=== PATIENT | female | born 2000 | race Caucasian/White ===

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

== ENCOUNTER 2018-02-21 14:12 | Emergency (ER) | payer OTHER ==
[~2018-02-21] VITALS: Ht 162.6 cm; Wt 73.0 kg
[~2018-02-21 14:12] MED LIST changes: -FERR-74 PO; +FERR325T18 PO; +NAPR-915 PO; -NAPR500T3 PO
[2018-02-21] MEDS ORDERED: ONDA4TAB10 (14:55)
[2018-02-21 15:02] LABS: BILIRUBIN,URINE NEGATIVE (NEGATIVE); CLARITY,URINE CLEAR; COLOR,URINE YELLOW; GLUCOSE, URINE (UA) NEGATIVE (NEGATIVE); KETONES,URINE NEGATIVE (NEGATIVE); LEUKOCYTE ESTERASE ,URINE NEGATIVE (NEGATIVE); NITRITE,URINE NEGATIVE (NEGATIVE); PH,URINE 6.5 (5-9); PROTEIN,URINE NEGATIVE (NEGATIVE); UROBILINOGEN,URINE NORMAL (NORMAL)
[2018-02-21 15:07] LABS: BASOPHILS % (AUTO) 0 % (0-10); EOSINOPHILS # (AUTO) 0.2 10^3/uL (0.0-0.3); EOSINOPHILS % (AUTO) 3 % (0-10); HEMATOCRIT 37 % (35-52); HEMOGLOBIN 12.2 G/DL (11.5-16.0); LYMPHOCYTES # (AUTO) 1.7 X 10^3 (1.0-4.0); LYMPHOCYTES % (AUTO) 29 % (12-44); MEAN CORPUSCULAR HEMOGLOBIN 31 PG (25-34); MEAN CORPUSCULAR HGB CONC 33 G/DL (32-36); MEAN CORPUSCULAR VOLUME 94 FL (80-99); MEAN PLATELET VOLUME 9.9 FL (7.4-10.4); MONOCYTES # (AUTO) 0.6 X 10^3 (0.0-1.0); MONOCYTES % (AUTO) 10 % (0-12); NEUTROPHILS # (AUTO) 3.4 X 10^3 (1.8-7.8); NEUTROPHILS % (AUTO) 58 % (42-75); PLATELET COUNT 269 10^3/uL (130-400); RED BLOOD COUNT 3.96 10^6/uL (4.35-5.85); RED CELL DISTRIBUTION WIDTH 12.8 % (10.0-14.5); WHITE BLOOD COUNT 5.8 10^3/uL (4.3-11.0)
[2018-02-21 15:09] LABS: BACTERIA,URINE NEGATIVE /HPF; RBC,URINE RARE /HPF
--- NOTE | 2018-02-21 16:16 | ED GU-Female ---
General Chief Complaint: -Female Stated Complaint: 7 WKS PREG;POSS MISCARRIAGE Nursing Triage Note: ARRIVED VIA AMB TO ROOM 09 STATES SHE STARTED HAVING PINK DISCHARGE SUNDAY THAT HAS TURNED TO BLOOD THIS AM. CALLED DR THOMAS WHO TOLD HER TO COME TO THE ER. SHE IS UNKNOWN OF LMP AND THINKS SHE IS APPX 7 WEEKS GESTATION AND DUE IN SEPTEMBER. Source: patient, old records Exam Limitations: no limitations History of Present Illness Date Seen by Provider: Feb 21, 2018 Time Seen by Provider: 14:18 Initial Comments This 17-year-old young woman 6 para 0 presents to the emergency room with complaints of vaginal bleeding in early . She does not recall when her LMP was but she believes herself to be ruled out 7 weeks gestational age. She reports having intermittent pink spotting for about one week when wiping. Then today she passed a few small clots that were pea-sized. She denies any notable pain. She has had a vaginal odor for a couple of days. She has had nausea for about 7 weeks but no vomiting. She has had some mild discomfort with intercourse. She reports having a history of one prior chlamydia infection. Dr. Thomas is her obstetrical provider. Allergies and Home Medications Allergies Coded Allergies: diphenhydramine (Verified Adverse Reaction, Unknown, hyperactivity, ) Home Medications Clindamycin HCl 300 Mg Capsule, 300 MG PO BID Prescribed by: ERROL GAFFNEY on 02/21/18 1619 Wth823/FA/Omega3/Dha/Fish Oil 1 Each Tab.chew, 1 TAB PO DAILY, (Reported) Patient Home Medication List Home Medication List Reviewed: Yes Review of Systems Review of Systems Constitutional: no symptoms reported EENTM: no symptoms reported Respiratory: no symptoms reported Cardiovascular: no symptoms reported Gastrointestinal: see HPI Genitourinary: see HPI : Yes Musculoskeletal: no symptoms reported Skin: no symptoms reported Psychiatric/Neurological: No Symptoms Reported Endocrine: No Symptoms Reported Past Nwwyuhe-Esshdk-Jaowfc Hx Past Med/Social Hx: Reviewed Nursing Past Med/Soc Hx Patient Social History Alcohol Use: Denies Use Recreational Drug Use: No Smoking Status: Never a Smoker Type Used: Cigarettes Former Smoker, Quit: July 24, 2016 Recent Foreign Travel: No Contact w/Someone Who Travel: No Recent Infectious Disease Expo: No Recent Hopitalizations: No Seasonal Allergies Seasonal Allergies: No Past Medical History Surgeries: Yes (hernia repair) Abdominal, Adenoidectomy, Tonsillectomy Respiratory: Yes Pneumonia Cardiac: Yes Neurological: No Hx : 6 Hx Para: 0 Hx Total # of Abortions (Sp): 5 Genitourinary: No Gastrointestinal: No Musculoskeletal: No Endocrine: No HEENT: No Cancer: No Psychosocial: Yes (bpd) ADD/ADHD, PTSD, Bipolar Integumentary: No Blood Disorders: No Family Medical History Hypertension 17 FATHER Hypoglycemia 19 MOTHER Myocardial infarction GRANDFATHER GRANDMOTHER Physical Exam Vital Signs Vital Signs - First Documented 02/21/18 02/21/18 14:46 16:26 Temp 97.9 Pulse 77 Resp 16 B/P (MAP) 117/78 Pulse Ox 100 O2 Delivery Room Air Capillary Refill : Height, Weight, BMI Height: 5'4.00" Weight: 161lbs. 6.0oz. 73.466326zp; 21.09 BMI Method:Stated General Appearance: WD/WN, no apparent distress HEENT: normal ENT inspection Neck: normal inspection Respiratory: normal breath sounds, no respiratory distress Gastrointestinal: non tender, soft Pelvic: normal external exam, normal adnexa, no cerv. motion tender, no masses , discharge (blood-tinged purulent drainage) Extremities: normal inspection, no pedal edema Neurologic/Psychiatric: field installer II-XII nml as tested, no motor/sensory deficits, alert, normal mood/affect, oriented x 3 Progress/Results/Core Measures Suspected Sepsis SIRS Temperature:97.9 Pulse: Respiratory Rate: Laboratory Tests 02/21/18 14:55: White Blood Count 5.8 Blood Pressure / Mean: Laboratory Tests 02/21/18 14:55: Platelet Count 269 Results/Orders Lab Results Laboratory Tests Test 02/21/18 14:40 02/21/18 14:55 02/21/18 15:15 Range/Units Urine Color YELLOW Urine Clarity CLEAR Urine pH 6.5 5-9 Urine Specific [place] 1.015 L 1.016-1.022 Urine Protein NEGATIVE NEGATIVE Urine Glucose (UA) NEGATIVE NEGATIVE Urine Ketones NEGATIVE NEGATIVE Urine Nitrite NEGATIVE NEGATIVE Urine Bilirubin NEGATIVE NEGATIVE Urine Urobilinogen NORMAL NORMAL MG/DL Urine Leukocyte Esterase NEGATIVE NEGATIVE Urine RBC (Auto) NEGATIVE NEGATIVE Urine RBC RARE /HPF Urine WBC NONE /HPF Urine Squamous Epithelial Cells 2-5 /HPF Urine Crystals NONE /LPF Urine Bacteria NEGATIVE /HPF Urine Casts NONE /LPF Urine Mucus NEGATIVE /LPF Urine Culture Indicated NO White Blood Count 5.8 4.3-11.0 10^3/uL Red Blood Count 3.96 L 4.35-5.85 10^6/uL Hemoglobin 12.2 11.5-16.0 G/DL Hematocrit 37 35-52 % Mean Corpuscular Volume 94 80-99 FL Mean Corpuscular Hemoglobin 31 25-34 PG Mean Corpuscular Hemoglobin Concent 33 32-36 G/DL Red Cell Distribution Width 12.8 10.0-14.5 % Platelet Count 269 130-400 10^3/uL Mean Platelet Volume 9.9 7.4-10.4 FL Neutrophils (%) (Auto) 58 42-75 % Lymphocytes (%) (Auto) 29 12-44 % Monocytes (%) (Auto) 10 0-12 % Eosinophils (%) (Auto) 3 0-10 % Basophils (%) (Auto) 0 0-10 % Neutrophils # (Auto) 3.4 1.8-7.8 X 10^3 Lymphocytes # (Auto) 1.7 1.0-4.0 X 10^3 Monocytes # (Auto) 0.6 0.0-1.0 X 10^3 Eosinophils # (Auto) 0.2 0.0-0.3 10^3/uL Basophils # (Auto) 0.0 0.0-0.1 10^3/uL Human Chorionic Gonadotropin, Quant [id number] H <5 MIU/ML Micro Results Microbiology 02/21/18 Genital Culture, Resulted Pending 02/21/18 NATHAN Preparation - Final, Resulted 02/21/18 Wet Prep - Final, Resulted My Orders Orders - ERROL JOHNSTON MD Cbc With Automated Diff (02/21/18 14:18) Hcg,Quantitative (02/21/18 14:18) Ua Culture If Indicated (02/21/18 14:18) Wet Prep (02/21/18 15:05) Neisseria Gonorrhea Swab (02/21/18 15:05) Genital Culture (02/21/18 15:05) Nathan Prep (02/21/18 15:05) Chlamydia Trachomatis Swab (02/21/18 15:05) Us Ob Transvaginal [id number] (02/21/18 14:52) Vital Signs/I&O 02/21/18 02/21/18 14:46 16:26 Temp 97.9 97.9 Pulse 77 77 Resp 16 16 B/P (MAP) 117/78 Pulse Ox 100 O2 Delivery Room Air Room Air Capillary Refill : Point of Care Testing Urine -Bedside: Positive Progress Note : Progress Note Although patient had stated to nursing staff she had not establish with an ball racker yet, Dr. Thomas stated that he did a pelvic exam on the patient yesterday. Patient did admit to this after her pelvic exam was completed in the ER. Ultrasound revealed a normal-appearing at about 6 weeks gestational age. Preliminary vaginal culture swabs revealed clue cells. Dr. Thomas stated he already had results from his pelvic exam that showed no chlamydia or gonorrhea. Patient will be treated for bacterial vaginosis. Dr. Thomas asked that I emphasize pelvic rest for at least 2 weeks. Diagnostic Imaging Diagonstic Imaging: Ultrasound Plain Films/CT/US/NM/MRI: pelvis Comments Ultrasound discussed with the watch technician and report reviewed. See report below: NAME: ANSHU SEWELL [facility] REC#: [id number] PT STATUS: REG ER : 2000 PHYSICIAN: ERROL JOHNSTON MD ADMIT DATE: 02/21/18/ER Draft Date of Exam:02/21/18 US OB TRANSVAGINAL [id number] PATIENT HISTORY: Vaginal bleeding, early . TECHNIQUE: Transvaginal ultrasound of the gravid uterus. COMPARISON: None. FINDINGS: There is an intrauterine gestation with a pole seen, measuring 4.7 mm, corresponding with 6 weeks and 2 days. A yolk sac is visible. The gestational sac has a normal appearance and contour. No significant subchorionic hemorrhage is appreciated. heart rate is 115 bpm. Estimated date of delivery by today's ultrasound is 10/15/2018. Clinical dates by last menstrual period are 8 weeks and 3 days. The left ovary measures 3.5 x 1.8 x 1.7 cm and demonstrates normal flow. The right ovary measures 3.1 x 2.2 x 3.5 cm and demonstrates a mildly complicated cyst with a simple appearing septation, measuring up to 1.6 cm in diameter. No free fluid is seen. IMPRESSION: Single live intrauterine gestation measuring at 6 weeks and 2 days. heart rate is normal for early . No significant subchorionic hemorrhage is seen. Dictated on workstation # [id number] Dict: 02/21/18 1615 Trans: 02/21/18 1621 [facility] [id number] Interpreted by: WAQAS RAMIREZ MD Departure Impression Primary Impression: Bacterial vaginosis Additional Impression: Vaginal bleeding during Disposition: HOME, SELF-CARE Condition: Improved Departure-Patient Inst. Decision time for Depature: 16:00 Referrals: HIREN THOMAS MD (PCP/Family) Primary Care Physician Patient Instructions: Bacterial Vaginosis (DC) Add. Discharge Instructions: Complete your antibiotic as prescribed. No sexual intercourse or anything vaginally for at least 2 weeks or until otherwise cleared by Dr. Thomas. Return to care or call Dr. Thomas if you have any further problems or concerns. All discharge instructions reviewed with patient and/or family. Voiced understanding. Scripts Clindamycin HCl (Clindamycin HCl) 300 Mg Capsule 300 MG PO BID, #14 CAP Prov: ERROL JOHNSTON MD 02/21/18 Copy Copies To 1: HIREN THOMAS MD, JOSHUA T MD Feb 21, 2018 16:16
[2018-02-21] MEDS ORDERED: CLIN300C11 PO (16:19)
--- NOTE | 2018-02-21 16:22 | Diagnostic Imaging Report ---
PATIENT HISTORY: Vaginal bleeding, early . TECHNIQUE: Transvaginal ultrasound of the gravid uterus. COMPARISON: None. FINDINGS: There is an intrauterine gestation with a pole seen, measuring 4.7 mm, corresponding with 6 weeks and 2 days. A yolk sac is visible. The gestational sac has a normal appearance and contour. No significant subchorionic hemorrhage is appreciated. heart rate is 115 bpm. Estimated date of delivery by today's ultrasound is 10/15/2018. Clinical dates by last menstrual period are 8 weeks and 3 days. The left ovary measures 3.5 x 1.8 x 1.7 cm and demonstrates normal flow. The right ovary measures 3.1 x 2.2 x 3.5 cm and demonstrates a mildly complicated cyst with a simple appearing septation, measuring up to 1.6 cm in diameter. No free fluid is seen. IMPRESSION: Single live intrauterine gestation measuring at 6 weeks and 2 days. heart rate is normal for early . No significant subchorionic hemorrhage is seen. Dictated by: Dictated on workstation # [id number]
== END 2018-02-21 16:26 | disposition home or self-care (01) ==
LOC: EDUNIT# 14:12 → ER 14:13
DX: O23.591 Infection of other part of genital tract in pregnancy, first trimester (principal); B96.89 Other specified bacterial agents as the cause of diseases classified elsewhere; O20.9 Hemorrhage in early pregnancy, unspecified; O99.341 Other mental disorders complicating pregnancy, first trimester; F90.9 Attention-deficit hyperactivity disorder, unspecified type; F43.10 Post-traumatic stress disorder, unspecified; F31.9 Bipolar disorder, unspecified; Z82.49 Family history of ischemic heart disease and other diseases of the circulatory system; Z87.891 Personal history of nicotine dependence; Z90.89 Acquired absence of other organs; Z98.890 Other specified postprocedural states; Z87.01 Personal history of pneumonia (recurrent); Z3A.01 Less than 8 weeks gestation of pregnancy; Z86.19 Personal history of other infectious and parasitic diseases; Z88.8 Allergy status to other drugs, medicaments and biological substances
CPT/HCPCS: 36415; 76817; 81000; 84702; 84703; 85025; 87070; 87205; 87210; 87491; 87591

== ENCOUNTER → 2018-05-27 | Outpatient (CLI) | payer OTHER ==
[~2018-05-27] MED LIST changes: +CLIN300C11 PO; +ONDA4TAB10
--- NOTE | 2018-05-27 13:07 | Diagnostic Imaging Report ---
INDICATION: survey. TECHNIQUE: Multiple real-time grayscale images were obtained over the gravid uterus. COMPARISON: 02/21/2018. FINDINGS: There is a single live fetus in a transverse presentation. heart rate was recorded at 132 beats per minute. Placenta is anterior. Amniotic fluid volume is normal. survey demonstrates kidneys, bladder and stomach to be unremarkable. brain is unremarkable. There is a four-chamber heart. There is a three-vessel cord with normal insertion. spine is somewhat limited due to position. Cervical length is 3.9 cm. Biometrical measurements are as follows: Biparietal 4.65 cm, age 20 weeks 1 days. Head circumference 16.81 cm, age 19 weeks 4 days. Abdominal circumference 13.78 cm, age 19 weeks 2 days. Femur length 3.23 cm, age 20 weeks 1 days. Sonographic estimate age: 19 weeks 6 days. Sonographic estimated date of delivery: 10/15/18. Estimated Weight: 303 gm (+/- 44 gm). LMP percentile: 32%. heart rate: 132 beats per minute. number: 1 of 1. IMPRESSION: Single live IUP approximately 19 weeks 6 days gestational age. Estimated date of confinement sonographically 10/15/2018. survey is unremarkable although spine is somewhat limited due to position and followup can be performed. Dictated by: Dictated on workstation # [id number]
== END ==
LOC: RAD 10:30
PROVIDERS: ATTEND Family Medicine
DX: Z36.89 Encounter for other specified antenatal screening (principal); Z3A.19 19 weeks gestation of pregnancy
CPT/HCPCS: 76805

== ENCOUNTER 2018-08-14 01:54 | Outpatient (CLI) | payer OTHER, MEDICAID ==
[~2018-08-14] VITALS: Ht 162.6 cm; Wt 76.7 kg
--- NOTE | 2018-08-14 02:00 | NUR ---
ANSHU SEWELL presented to unit via WC from ED, accompanied by staff and s.o., with c/o CONTRACTIONS,FLUID LEAKAGE. ANSHU SEWELL weighed, gowned, voided, and to bed. EFHM and TOCO applied, VS taken. ANSHU SEWELL oriented to bed controls, call light, TV, heat, and A/C controls.
[2018-08-14] MEDS ORDERED: FLUC150T PO (02:46)
[2018-08-14 02:53] LABS: BILIRUBIN,URINE NEGATIVE (NEGATIVE); CLARITY,URINE CLEAR; COLOR,URINE YELLOW; GLUCOSE, URINE (UA) NEGATIVE (NEGATIVE); KETONES,URINE NEGATIVE (NEGATIVE); LEUKOCYTE ESTERASE ,URINE 2+ (NEGATIVE); NITRITE,URINE NEGATIVE (NEGATIVE); PH,URINE 7 (5-9); PROTEIN,URINE NEGATIVE (NEGATIVE); UROBILINOGEN,URINE NORMAL (NORMAL)
[2018-08-14 03:00] VITALS: BP 115/78
[2018-08-14 03:01] LABS: BACTERIA,URINE TRACE /HPF
[2018-08-14 03:02] LABS: URINE OTHER FEW SPERM /HPF
== END 2018-08-14 03:25 | disposition home or self-care (01) ==
LOC: WSo 01:54 → LDRP 01:55 → WSo 03:25
PROVIDERS: ATTEND Family Medicine
DX: Z03.71 Encounter for suspected problem with amniotic cavity and membrane ruled out (principal)
CPT/HCPCS: 81000; 99213

== ENCOUNTER 2018-08-27 01:24 | Inpatient (IN) | payer OTHER, MEDICAID ==
[~2018-08-27] VITALS: Ht 162.6 cm; Wt 80.3 kg
[~2018-08-27 01:24] MED LIST changes: +FLUC150T PO
--- NOTE | 2018-08-27 01:30 | NUR ---
ANSHU SEWELL presented to unit via ambulation from ED, accompanied by s.o., with c/o CONTRACTIONS. ANSHU SEWELL weighed, gowned, voided, and to bed. EFHM and TOCO applied, VS taken. ANSHU SEWELL oriented to bed controls, call light, TV, heat, and A/C controls.
[2018-08-27 01:45] VITALS: BP 118/79
[2018-08-27 02:30] VITALS: BP 131/79
[2018-08-27] MEDS ORDERED: MAGNESIUM 4 GM/100 ML IVPB 100 ML IV ONE (02:30)
[2018-08-27] MEDS ORDERED: BETAMETHASONE ACE/NA PHOS 6 MG/ML (CELESTONE SOLUSPAN) IM ONE (02:30)
[2018-08-27] MEDS ORDERED: NS IV 1000 ML 1,000 ML ONE (02:31)
[2018-08-27] MEDS ORDERED: MAGNESIUM SULFATE DRIP 500 ML IV ONE (02:35)
[2018-08-27] MEDS ORDERED: D5 LR IV SOLUTION 1,000 ML IV SCH (02:46)
[2018-08-27 02:50] VITALS: BP 73/44
[2018-08-27] MEDS ORDERED: WATER (STERILE) FOR INJECTION 20 ML ONE (02:50)
[2018-08-27] MEDS ORDERED: AMPICILLIN FOR IV USE 2,000 MG VIAL ONE (02:50)
--- NOTE | 2018-08-27 02:50 | History & Physical-OB ---
OB - Chief Complaint & HPI Date/Time Date of Admission: August 27, 2018 Date seen by a Provider: Aug 27, 2018 Time Seen by a Provider: 14:30 Chief Complaint/History OB-Reason for Admission/Chief: Rupture of Membranes Hx : 4 Hx Para: 0 Expected Date of Delivery: Oct 15, 2018 Gestational Age in Weeks: 34 Gestational Age in Days: 0 Other reason for admission: 18-year-old 4 currently at 34 weeks 0 days gestation who presents to women's services in the surtass analyst of August for with ruptured membranes. She does admit to having leaking of fluid throughout the afternoon of August 26, 2018. Apparently she was not 100 percent sure that she had ruptured membranes. She did not have a way to get to office during the afternoon to be checked for ruptured membranes. She presented to women's services and she does admit to contractions irregularly. Admission Nurse Assessment Rev: Yes History of Labs GBS unavailable as not performed due to not being at 36 weeks gestation Allergies and Home Medications Allergies Coded Allergies: diphenhydramine (Verified Adverse Reaction, Unknown, hyperactivity, 08/14/18) Patient Home Medication List Home Medication List Reviewed: Yes OB - History Hx of Present Care: Yes Ultrasounds: Normal mid trimester US Obstetrical Complications: None Medical Complications: None Patient Past Medical History No chronic medical problems Social History/Family History Recent Infectious Disease Expo: No Alcohol Use: Denies Use Recreational Drug Use: No OB - Admission Exam Physical Exam HEENT: Moist Membranes Heart: Rhythm Normal Lungs: Clear Abdomen: Gravid Reflexes: Normal Cervical Dilatation: 1cm Membranes: Ruptured Amniotic Fluid: Clear Heart Rate: 140's Accelerations: Accelerations Present Decelerations: No Decelerations Short Term Variability: Present Club Concierge Variability: Average (6-25) Contractions on Admission: >10 Minutes Apart Intensity: Mild OB - Assessment/Plan/Diagnosis Assessment Assessment: rupture of membranes (At 34 weeks gestation) Admission Dx 1. Intrauterine at 34 weeks 0 days gestation 2. Spontaneous premature rupture of membranes Admission Status: Observation Reason for Inpatient Admission: Patient is being transferred to [facility] under the care of Dr. Xiong. Plan Plan: Other (Patient has received betamethasone 12 mg IM. She will also receive ampicillin 2 g loading dose here. Magnesium 4 g loading dose followed by 2 g hour on transfer.) HIREN THOMAS MD Aug 27, 2018 02:50
[2018-08-27 02:54] LABS: BASOPHILS % (AUTO) 0 % (0-10); EOSINOPHILS # (AUTO) 0.3 10^3/uL (0.0-0.3); EOSINOPHILS % (AUTO) 2 % (0-10); HEMATOCRIT 39 % (35-52); HEMOGLOBIN 12.8 G/DL (11.5-16.0); LYMPHOCYTES # (AUTO) 2.6 X 10^3 (1.0-4.0); LYMPHOCYTES % (AUTO) 22 % (12-44); MEAN CORPUSCULAR HEMOGLOBIN 32 PG (25-34); MEAN CORPUSCULAR HGB CONC 33 G/DL (32-36); MEAN CORPUSCULAR VOLUME 96 FL (80-99); MEAN PLATELET VOLUME 10.8 FL (7.4-10.4); MONOCYTES # (AUTO) 1.2 X 10^3 (0.0-1.0); MONOCYTES % (AUTO) 10 % (0-12); NEUTROPHILS # (AUTO) 7.7 X 10^3 (1.8-7.8); NEUTROPHILS % (AUTO) 65 % (42-75); PLATELET COUNT 312 10^3/uL (130-400); RED CELL DISTRIBUTION WIDTH 12.9 % (10.0-14.5); WHITE BLOOD COUNT 11.8 10^3/uL (4.3-11.0)
[2018-08-27 03:00] VITALS: BP 105/59
[2018-08-27] MEDS ORDERED: CALCIUM GLUC. 10% 4.65 MEQ/10 ML VIAL IV PRN (03:00)
[2018-08-27] MEDS ORDERED: AMPICILLIN FOR IV USE 2,000 MG in WATER (STERILE) FOR INJECTION 14.8 ML IV ONE (03:00)
[2018-08-27] MEDS ORDERED: MAGNESIUM 4 GM/100 ML IVPB 100 ML IV SCH (03:00)
[2018-08-27] MEDS ORDERED: NS IV 1000 ML 1,000 ML IV SCH (03:15)
[2018-08-27] MEDS ORDERED: MAGNESIUM SULFATE DRIP 500 ML IV SCH (03:16)
--- NOTE | 2018-08-27 03:20 | NUR ---
Pt. left [facility] via cart per [facility] staff to be transferred to [facility].
--- NOTE | 2018-08-29 15:51 | Physician Query-Final Dx ---
Final Diagnosis Give Final Diagnosis Please give Final Diagnosis ENEIDA GARCIA Aug 29, 2018 15:51
== END 2018-08-27 03:20 | disposition short-term general hospital (02) | DRG 833 ==
LOC: WSo 01:24 → LDRP 02:15 → UNDOADMIN 02:15 → LDRP 03:19 → UNDOADMIN 06:43
PROVIDERS: ADMIT Family Medicine; ATTEND Family Medicine
DX: O42.013 Preterm premature rupture of membranes, onset of labor within 24 hours of rupture, third trimester (principal); Z3A.34 34 weeks gestation of pregnancy
CPT/HCPCS: 36415; 83735; 85025; 86850; 86900; 86901

== ENCOUNTER 2018-09-13 04:08 | Outpatient (CLI) | payer OTHER, MEDICAID ==
[~2018-09-13] VITALS: Ht 162.6 cm; Wt 80.3 kg
--- NOTE | 2018-09-13 04:15 | NUR ---
ANSHU SEWELL presented to unit via ambulatory from ED, accompanied by s/o , with c/o CONTRACTIONS. ANSHU SEWELL weighed, gowned, voided, and to bed. EFHM and TOCO applied, VS taken. ANSHU SEWELL oriented to bed controls, call light, TV, heat, and A/C controls. pt up changing and supplying u/a assessments to follow per Royal lamas.
[2018-09-13 04:27] VITALS: BP 121/77
[2018-09-13 04:42] LABS: BILIRUBIN,URINE NEGATIVE (NEGATIVE); CLARITY,URINE CLEAR; COLOR,URINE YELLOW; GLUCOSE, URINE (UA) NEGATIVE (NEGATIVE); KETONES,URINE 1+ (NEGATIVE); LEUKOCYTE ESTERASE ,URINE 1+ (NEGATIVE); NITRITE,URINE NEGATIVE (NEGATIVE); PH,URINE 7 (5-9); PROTEIN,URINE 1+ (NEGATIVE); UROBILINOGEN,URINE NORMAL (NORMAL)
[2018-09-13 04:51] LABS: BACTERIA,URINE MODERATE /HPF
[2018-09-13 05:22] VITALS: BP 121/77
--- NOTE | 2018-09-13 05:23 | NUR ---
Report called to Dr Gurrola and order for discharge received. Pt drinking water and ate jello. Pt states she doesn't understand why UC stopped but is good with going home since UC did stop, pt reassured and ambulated to private vehicle with SO.
--- NOTE | 2018-09-18 09:34 | Physician Query-Final Dx ---
MICHAEL LENTZ 09/18/18 0934: Clinic Account Progress/Dx Physician Query: Please give diagnosis Need diagnosis and weeks of gestation. Date of Service Sep 13, 2018 at 04:08 HIREN THOMAS MD 09/24/18 1105: Clinic Account Progress/Dx DIAGNOSIS: Diagnosis 1. IUP at 35w3d gestation 2. Non-labor MICHAEL LENTZ Sep 18, 2018 09:34 HIREN THOMAS MD Sep 24, 2018 11:05
== END 2018-09-13 05:20 | disposition home or self-care (01) ==
LOC: WSo 04:08 → LDRP 04:10 → WSo 05:20
PROVIDERS: ATTEND Family Medicine
DX: O47.03 False labor before 37 completed weeks of gestation, third trimester (principal); Z3A.35 35 weeks gestation of pregnancy
CPT/HCPCS: 81000; 87088; 99213

== ENCOUNTER 2018-09-17 14:13 | Outpatient (CLI) | payer OTHER, MEDICAID ==
[2018-09-17 14:25] VITALS: BP 142/86
--- NOTE | 2018-09-17 14:25 | NUR ---
Received to room 320 for NST for decreased movement from Dr Gurrola's office. 4 accelerations in 10 minutes noted with baseline of 130 and increased to 150's. No contractions noted. 1517 Dr Gurrola notified of results - plan to discharge with follow up biophysical profile tomorrow. Pt verbalizes understanding.
[2018-09-17 15:10] VITALS: BP 120/81
--- NOTE | 2018-09-17 16:15 | NUR ---
Pt has been waiting on ride. 1615 Pt ambulatory to 1st floor.
== END 2018-09-17 16:15 ==
LOC: LDRP 14:13 → WSo 14:13
PROVIDERS: ATTEND Family Medicine
DX: O36.8190 Decreased fetal movements, unspecified trimester, not applicable or unspecified (principal)

== ENCOUNTER 2018-09-18 09:26 | Outpatient (RCR) | payer OTHER, MEDICAID ==
--- NOTE | 2018-09-11 14:54 | Diagnostic Imaging Report ---
INDICATION: IUGR. TECHNIQUE: Multiple real-time grayscale images were obtained over the gravid uterus. COMPARISON: 05/27/2018. FINDINGS: There is a single live fetus in a cephalic presentation. heart rate was recorded at 139 beats per minute. Placenta is anterior. Amniotic fluid index is 9.3 cm. Biophysical profile is performed with overall score of 8 out of 8. Biometrical measurements are as follows: Biparietal 9.01 cm, age 36 weeks 4 days. Head circumference 31.46 cm, age 35 weeks 3 days. Abdominal circumference 26.96 cm, age 31 weeks 1 days. Femur length 6.81 cm, age 35 weeks 0 days. Sonographic estimate age: 34 weeks 4 days. Sonographic estimated date of delivery: 10/19/2018. Estimated Weight: 2131 gm (+/- 311 gm). LMP percentile: 7%. heart rate: 139 beats per minute. number: 1 of 1. IMPRESSION: Single live IUP measuring approximately 34-35 weeks gestational age showing normal interval growth when compared with examination from 05/27/2018. Note that abdominal circumference measurements do lag and measure at approximately 31 weeks gestation. Dictated by: Dictated on workstation # [id number]
--- NOTE | 2018-09-18 10:57 | Diagnostic Imaging Report ---
Indication IUGR. Biophysical profile was performed. Fetus is cephalic. heart rate was recorded at 128 beats per minute. Amniotic fluid index is 7.4 cm. Biophysical profile score is 6/8. 2 point deduction was given for lack of breathing movements visualized. Impression: Biophysical profile score 6/8, as described. Dictated by: Dictated on workstation # [id number]
--- NOTE | 2018-09-25 10:33 | Diagnostic Imaging Report ---
INDICATION: Intrauterine growth restriction, decreased movement. TECHNIQUE: Multiple real-time grayscale images were obtained over the gravid uterus. COMPARISON: 09/18/2018 FINDINGS: There is a single live intrauterine gestation in cephalic presentation. The placenta is anterior without previa seen. The cervix is not well seen due to positioning. An anatomic survey is not performed at this time. Amniotic fluid index measures 6.7 cm which is borderline low for gestational age, however there is a vertical pocket measuring 5.1 cm. The maternal adnexa are not seen. The biophysical profile score is 8 out of 8, which is normal. Biometrical measurements are as follows: Biparietal 9.1 cm, age 37 weeks zero days. Head circumference 32.9 cm, age 37 weeks 3 days. Abdominal circumference 31.2 cm, age 35 weeks one day. Femur length 6.9 cm, age 35 weeks 2 days. Sonographic estimate age: 36 weeks 2 days. Sonographic estimated date of delivery: 10/21/2018. Estimated Weight: 2706 gm (+/- 395 gm). LMP percentile: 18%. heart rate: 118 beats per minute. number: One of one. IMPRESSION: 1. Single live intrauterine gestation measuring at 36 weeks and 2 days which is within range of the clinical dates. 2. Biophysical profile score is 8 out of 8, although the amniotic fluid index appears borderline low. Dictated by: Dictated on workstation # [id number]
[2018-10-05] MEDS ORDERED: IBUP-844 PO (06:58)
== END 2018-12-10 | disposition home or self-care (01) ==
LOC: RAD 09:26
PROVIDERS: ATTEND Family Medicine
DX: O36.5930 Maternal care for other known or suspected poor fetal growth, third trimester, not applicable or unspecified (principal); Z3A.34 34 weeks gestation of pregnancy
CPT/HCPCS: 76805; 76819

== ENCOUNTER 2018-09-19 15:55 | Outpatient (CLI) | payer OTHER, MEDICAID ==
--- NOTE | 2018-09-19 16:02 | NUR ---
ANSHU SEWELL presented to unit via ambulation from Dr Gurrola's office accompanied by family, with c/o DECREASED MOVEMENT for NST. EFHM and TOCO applied, VS taken. ANSHU SEWELL oriented to bed controls, call light, TV, heat, and A/C controls.
[2018-09-19 16:35] VITALS: BP 125/78
--- NOTE | 2018-09-19 16:36 | NUR ---
Dr Gurrola called and notified of reactive NST, few variables, ctx pattern, VS. Order rec'd for D/C, follow up as scheduled, no need to return for NST tomorrow. Pt updated. Ambulates self off unit to private vehicle with all personal belongings. No s/s of distress noted.
== END 2018-09-19 16:36 | disposition home or self-care (01) ==
LOC: WSo 15:55
PROVIDERS: ATTEND Family Medicine
DX: O36.8190 Decreased fetal movements, unspecified trimester, not applicable or unspecified (principal)
CPT/HCPCS: 59025

== ENCOUNTER 2018-09-20 20:41 | Outpatient (CLI) | payer OTHER, MEDICAID ==
[~2018-09-20] VITALS: Ht 162.6 cm; Wt 82.6 kg
--- NOTE | 2018-09-20 20:48 | NUR ---
ANSHU SEWELL presented to unit via ambulation from home, accompanied by SO, with c/o VAG BLEEDING/LOWER ABD PAIN. ANSHU SEWELL weighed, gowned, voided, and to bed. EFHM and TOCO applied, VS taken. ANSHU SEWELL oriented to bed controls, call light, TV, heat, and A/C controls.
[2018-09-20 21:22] LABS: BILIRUBIN,URINE NEGATIVE (NEGATIVE); CLARITY,URINE CLEAR; COLOR,URINE YELLOW; GLUCOSE, URINE (UA) NEGATIVE (NEGATIVE); KETONES,URINE NEGATIVE (NEGATIVE); LEUKOCYTE ESTERASE ,URINE 3+ (NEGATIVE); NITRITE,URINE NEGATIVE (NEGATIVE); PH,URINE 7 (5-9); PROTEIN,URINE NEGATIVE (NEGATIVE); UROBILINOGEN,URINE NORMAL (NORMAL)
[2018-09-20 21:38] LABS: BACTERIA,URINE MODERATE /HPF; SQUAMOUS EPITHELIAL CELL,UR TNTC /HPF
--- NOTE | 2018-09-20 21:54 | NUR ---
Dr. Gurrola notified of pt. arrival and evaluation. Orders received to discharge pt. home on labor precautions.
--- NOTE | 2018-09-20 22:26 | NUR ---
Written discharge instructions reviewed with patient. Discharge instructions signed and copy given. No questions or concerns voiced at time of discharge. Condition stable. No signs or symptoms of distress.
== END 2018-09-20 22:26 | disposition home or self-care (01) ==
LOC: WSo 20:41 → LDRP 20:41 → WSo 22:26
PROVIDERS: ATTEND Family Medicine
DX: O99.89 Other specified diseases and conditions complicating pregnancy, childbirth and the puerperium (principal); N93.9 Abnormal uterine and vaginal bleeding, unspecified; Z3A.36 36 weeks gestation of pregnancy
CPT/HCPCS: 81000; 87088; 99213

== ENCOUNTER 2018-10-03 05:53 | Inpatient (IN) | payer OTHER, MEDICAID ==
[~2018-10-03] VITALS: Ht 162.6 cm; Wt 83.0 kg
[2018-10-03] VITALS (45 sets, daily range): BP systolic 105–137; BP diastolic 54–83
--- NOTE | 2018-10-03 06:00 | NUR ---
ANSHU SEWELL presented to unit via ambulation from ED, accompanied by SO, for INDUCTION. ANSHU SEWELL weighed, gowned, voided, and to bed. EFHM and TOCO applied, VS taken. ANSHU SEWELL oriented to bed controls, call light, TV, heat, and A/C controls.
[2018-10-03] MEDS ORDERED: D5 LR IV SOLUTION 1,000 ML IV ONE (07:02)
--- NOTE | 2018-10-03 07:13 | History & Physical-OB ---
OB - Chief Complaint & HPI Date/Time Date of Admission: Date of Admission: Oct 03, 2018 at 05:53 Date seen by a Provider: Oct 03, 2018 Time Seen by a Provider: 07:10 Chief Complaint/History OB-Reason for Admission/Chief: Induction of Labor Hx : 4 Hx Para: 0 Expected Date of Delivery: Oct 15, 2018 Gestational Age in Weeks: 38 Gestational Age in Days: 2 Admission Nurse Assessment Rev: Yes History of Labs GBS negative Allergies and Home Medications Allergies Coded Allergies: diphenhydramine (Verified Adverse Reaction, Unknown, hyperactivity, 09/20/18) Home Medications No Active Prescriptions or Reported Meds Patient Home Medication List Home Medication List Reviewed: Yes OB - History Hx of Present Care: Yes Ultrasounds: Normal mid trimester US Obstetrical Complications: None Medical Complications: None Patient Past Medical History No chronic medical problems OB - Admission Exam Physical Exam HEENT: Moist Membranes Heart: Rhythm Normal Lungs: Clear Abdomen: Gravid Extremities: Normal Reflexes: Normal Cervical Dilatation: 3cm Effacement: 50% Station: -3 Membranes: Intact Cardoso Scoring Tool (Modified) Dilation (cm): 3-4cm (2) Effacement (%): 31-51% (1) Descent/Station: -3 (0) Cervix Consistency: Medium(1) Cervix Position: Middle/Mid-Position (1) Cardoso Score: 5 OB - Assessment/Plan/Diagnosis Assessment Assessment: induction of labor (at 38 weeks due to IUGR and oligo) Admission Dx 1. IUP at 38 weeks 2. Oligo 3. IUGR Admission Status: Inpatient Order (span 2 midnights) Reason for Inpatient Admission: Induction of labor Plan Plan: Induction Induction Method: AROM Other Plan -pitocin -epidural if so desires HIREN THOMAS MD Oct 03, 2018 07:13
[2018-10-03] MEDS ORDERED: D5 LR IV SOLUTION 1,000 ML IV SCH (07:40)
[2018-10-03] MEDS ORDERED: OXYTOCIN/NORMAL SALINE 500 ML IV SCH ×2 (07:40→15:59)
[2018-10-03] MEDS ORDERED: OXYTOCIN/NORMAL SALINE 500 ML IV ONE (07:41)
[2018-10-03] MEDS ORDERED: MINERAL OIL CONCENTRATE 99.9% 15 ML UDC TOP PRN (07:45)
[2018-10-03 07:49] LABS: BASOPHILS % (AUTO) 0 % (0-10); EOSINOPHILS # (AUTO) 0.2 10^3/uL (0.0-0.3); EOSINOPHILS % (AUTO) 2 % (0-10); HEMATOCRIT 33 % (35-52); HEMOGLOBIN 10.8 G/DL (11.5-16.0); LYMPHOCYTES # (AUTO) 2.4 X 10^3 (1.0-4.0); LYMPHOCYTES % (AUTO) 25 % (12-44); MEAN CORPUSCULAR HEMOGLOBIN 31 PG (25-34); MEAN CORPUSCULAR HGB CONC 33 G/DL (32-36); MEAN CORPUSCULAR VOLUME 96 FL (80-99); MEAN PLATELET VOLUME 11.1 FL (7.4-10.4); MONOCYTES % (AUTO) 10 % (0-12); NEUTROPHILS % (AUTO) 63 % (42-75); PLATELET COUNT 243 10^3/uL (130-400); RED CELL DISTRIBUTION WIDTH 13.1 % (10.0-14.5); WHITE BLOOD COUNT 9.5 10^3/uL (4.3-11.0)
[2018-10-03] MEDS ORDERED: SUFENTA 0.6MCG/ML BUPIVA 0.125 100 ML ONE (08:40)
--- NOTE | 2018-10-03 08:55 | NUR ---
Kimberly Perez CRNA here for epidural placement. Procedure explained, consent reviewed and signed by anesthesia. Questions answered to patient's satisfaction. Time out taken to verify correct patient/procedure. Patient up to side of bed, assisted into sitting position. Betadine prep done x3 and sterile drape applied. Local done, see anesthesia record. Test dose given, see anesthesia record for drug and dosage. Epidural catheter secured in place. Epidural placement complete. Assisted back into bed, monitors adjusted. Epidural dosed, see anesthesia record. Epidural of Sufenta/Bupvicaine @ 12cc/hr stated per pump. Patient tolerated procedure well.
[2018-10-03] MEDS ORDERED: fentaNYL INJECTION 100 MCG/2 ML AMP ONE (09:13)
[2018-10-03] MEDS ORDERED: LACTATED RINGERS 1,000 ML IV ONE (10:32)
[2018-10-03] MEDS ORDERED: NALOXONE 0.4 MG/ML 1 ML (NARCAN) VIAL IV PRN ×2 (10:45)
[2018-10-03] MEDS ORDERED: EPIDURAL (SUFENTA 0.6MCG/ML BUPIVA 0.125%) 100 ML BAG EPI PRN (10:45)
[2018-10-03] MEDS ORDERED: diphenhydrAMINE 50 MG/ML INJ (BENADRYL) IV PRN (10:45)
[2018-10-03] MEDS ORDERED: METOCLOPRAMIDE INJ 10 MG/2 ML (REGLAN) IV PRN (10:45)
[2018-10-03] MEDS ORDERED: ONDANSETRON 4 MG/2 ML (SDV) Z0FRAN IV PRN (10:45)
[2018-10-03] MEDS ORDERED: MEPIVACAINE (CARBOCAINE) 2% 50 ML VIAL ONE (13:54)
[2018-10-03] MEDS ORDERED: CATHETER FLUSH 10 ML SYR IV SCH (14:00)
[2018-10-03] MEDS ORDERED: TETANUS,DIPTH,PERTUSS P/F (BOOSTRIX) 0.5 ML VIAL IM ONE (16:00)
[2018-10-03] MEDS ORDERED: MEASLES,MUMPS,RUBELLA 1 EA INJ SQ ONE (16:00)
--- NOTE | 2018-10-03 16:15 | OB Labor & Delivery Record ---
L&D History Date of Service Date of Service: Oct 03, 2018 History Expected Date of Delivery: Oct 15, 2018 Gestational Age in Weeks: 38 Hx : 4 Hx Para: 1 Complications Events: Routine care Operative Indications (Cesarea: N/A-Vaginal Delivery Intrapartal Events: None Other Complications Low baseline but otherwise reassuring L&D Stage1 Stage One Onset of Labor - Date: Oct 03, 2018 Onset of Labor - Time: 07:28 Monitors and Tracing Monitor Mode: Internal Heart Rate: 95 Monitor Accelerations: Uniform Monitor Decelerations: Variable Station: 0 Longterm Variability: Average (6-10) Short Term Variability: Present Presentation: Vertex Vital Signs VS - Last 72 Hours, by Label 10/03/18 10/03/18 10/03/18 10/03/18 07:30 07:50 08:20 08:52 Temp 98.2 Pulse 68 68 60 71 Resp 18 18 18 18 B/P (MAP) 105/73 (84) 122/70 (87) 127/83 (98) 116/54 (74) Pulse Ox 100 10/03/18 10/03/18 10/03/18 10/03/18 09:07 09:12 09:17 09:20 Temp 96.6 Pulse 57 57 45 52 Resp 18 18 18 18 B/P (MAP) 119/68 (85) 119/67 (84) 113/61 (78) 115/66 (82) Pulse Ox 99 10/03/18 10/03/18 10/03/18 10/03/18 09:23 09:26 09:29 09:32 Pulse 50 54 51 68 Resp 18 18 18 18 B/P (MAP) 114/66 (82) 116/69 (85) 115/70 (85) 115/66 (82) Pulse Ox 100 100 100 99 10/03/18 10/03/18 10/03/18 10/03/18 09:35 09:38 09:46 09:50 Pulse 59 57 55 53 Resp 18 18 18 18 B/P (MAP) 116/72 (87) 112/68 (83) 115/66 (82) 108/64 (79) Pulse Ox 99 100 98 98 10/03/18 10/03/18 10/03/18 10/03/18 09:56 10:15 10:30 10:45 Pulse 57 59 63 69 Resp 18 18 18 18 B/P (MAP) 108/63 (78) 112/69 (83) 109/57 (74) 112/70 (84) Pulse Ox 97 98 100 99 10/03/18 10/03/18 10/03/18 10/03/18 11:00 11:15 11:30 11:45 Temp 95.6 96.1 Pulse 60 58 56 68 Resp 18 18 18 18 B/P (MAP) 116/70 (85) 117/72 (87) 113/74 (87) 123/75 (91) Pulse Ox 99 10/03/18 10/03/18 10/03/18 10/03/18 12:00 12:05 12:10 12:15 Pulse 60 53 66 54 Resp 18 18 18 18 B/P (MAP) 137/76 (96) 126/80 (95) 124/82 (96) 127/79 (95) 10/03/18 10/03/18 10/03/18 10/03/18 12:20 12:25 12:30 12:45 Pulse 74 62 58 65 Resp 18 18 18 18 B/P (MAP) 123/81 (95) 126/83 (97) 119/77 (91) 113/75 (88) 10/03/18 10/03/18 10/03/18 10/03/18 13:00 13:15 13:30 13:45 Temp 97.1 Pulse 56 70 68 71 Resp 18 18 18 18 B/P (MAP) 119/77 (91) 115/77 (90) 114/75 (88) 127/83 (98) 10/03/18 10/03/18 14:00 14:15 Pulse 77 85 Resp 18 18 B/P (MAP) 122/80 (94) 126/77 (93) Signs of Distress by FHT Signs of Distress no Rupture of Membranes Spontaneous Ruture of Membrane: No Amniotic Membrane Rupture Time: 727 Vaginal Bleeding Description: None Induction/Anesthesia Epidural Cath Placement - Time: 0910 L&D Stage2 Stage Two Stage II Date: Oct 03, 2018 Stage II Time: 14:28 Monitors and Tracing Monitor Mode: Internal Heart Rate: 95 Monitor Accelerations: Uniform Monitor Decelerations: Variable Short Term Variability: Present Position: Left Occiput Anterior Presentation: Vertex Signs of Distress by FHT Signs of Distress no Cord Descript/Complications Cord Vessel Description: 3 Vessels Delivery Type Infant Delivery Method: Low Vacuum Extraction Anterior Shoulder: Left Episiotomy/Perineal Laceration Laceraction(s)/Extensions: Yes Episiotomy Description: Midline Sutures Used: Vicryl Condition of Infant Delivery 1 minute Comment: 8 5 minute Comment: 9 Condition of Infant Condition of : Living Exam: No Observed Abnormalities Resuscitation Resuscitation: N/A - Spontaneous Resp L&D Stage3 Stage Three Stage III Date: Oct 03, 2018 Stage III Time: 14:32 Pictocin Pitocin Administration mu/min: 6 Pitocin ml/hr: 6 Pitocin Administration Comment: Pitocin increased per protocol Placenta Delivery Placenta Delivery: Spontaneous Delivery Summary Summary Estimated blood loss (mL): 150 Condition of Delivery Examined: Cervix Examined Post Hemorrhage: No Intervention Required none HIREN THOMAS MD Oct 03, 2018 16:15
[2018-10-03] MEDS: IBUPROFEN 600 MG (MOTRIN) TAB PO SCH ×2 (16:52→23:12)
--- NOTE | 2018-10-03 17:00 | NUR ---
FFU/2, light rubra lochia noted, no clots expressed. Pt denies urge to void at this time. Pericare performed. Fresh vpad and underwear applied to perineum, clean gown on. Pt assisted to wheelchair and transferred to PP room 312 accompanied by RN, S.O. and along with all personal belongings. Pt assisted back to bed without incident. Pt and S.O. oriented to room and call light. packet explained. Encouraged pt to call for assistance ambulating when needs to void as pt's R leg is still fairly numb. Pt verbalizes understanding, denies any needs or concerns at this time.
--- NOTE | 2018-10-03 19:35 | NUR ---
Standby assist to bathroom, first void since delivery of onel urine mixed with blood noted in toilet. Pericare pads changed per rn assist, pt amb standby back to bed without difficulty. Will cont to monitor. Derm and tucks pads supplied.
[2018-10-03] MEDS: DOCUSATE SODIUM 100 MG (COLACE) CAP PO SCH (23:42)
[2018-10-03] MEDS: WITCH HAZEL(TUCKS) 40 EA JAR TOP PRN (23:45)
[2018-10-03] MEDS: BENZOCAINE/MENTHOL (DERMOPLAST) 56 ML CAN TP PRN (23:45)
[2018-10-04 05:13] VITALS: BP 134/77
[2018-10-04] MEDS: IBUPROFEN 600 MG (MOTRIN) TAB PO SCH ×3 (05:13→18:31)
[2018-10-04 05:48] LABS: BASOPHILS % (AUTO) 0 % (0-10); EOSINOPHILS # (AUTO) 0.2 10^3/uL (0.0-0.3); EOSINOPHILS % (AUTO) 2 % (0-10); HEMATOCRIT 33 % (35-52); HEMOGLOBIN 10.7 G/DL (11.5-16.0); LYMPHOCYTES # (AUTO) 3.5 X 10^3 (1.0-4.0); LYMPHOCYTES % (AUTO) 23 % (12-44); MEAN CORPUSCULAR HEMOGLOBIN 31 PG (25-34); MEAN CORPUSCULAR HGB CONC 32 G/DL (32-36); MEAN CORPUSCULAR VOLUME 97 FL (80-99); MEAN PLATELET VOLUME 11.3 FL (7.4-10.4); MONOCYTES # (AUTO) 1.4 X 10^3 (0.0-1.0); MONOCYTES % (AUTO) 9 % (0-12); NEUTROPHILS # (AUTO) 10.1 X 10^3 (1.8-7.8); NEUTROPHILS % (AUTO) 66 % (42-75); PLATELET COUNT 257 10^3/uL (130-400); RED CELL DISTRIBUTION WIDTH 13.4 % (10.0-14.5); WHITE BLOOD COUNT 15.2 10^3/uL (4.3-11.0)
--- NOTE | 2018-10-04 07:35 | NUR ---
THIS RN TO BEDSIDE, PT C/O FUSSY . ONLY WANTS TO BE HELD AGAINST MOM'S CHEST, PT TIRED. PT INQUIRING ABOUT NURSERY TAKING SO SHE CAN SLEEP. PT INFORMED OF SHIFT CHANGE, REPORT, ROUNDINGS, ETC; WILL TRY TAKING LATER ON. PT VERBALIZES UNDERSTANDING AND DENIES ANY FURTHER NEEDS AT THIS TIME. CALL LIGHT WITHIN REACH.
--- NOTE | 2018-10-04 07:49 | Progress Note ---
Subjective Date Seen by a Provider: Oct 04, 2018 Time Seen by a Provider: 07:05 Subjective/Events-last exam Doing well no complaints. Perineum a little sore. Objective Exam Vital Signs Date Time Temp Pulse Resp B/P (MAP) Pulse Ox O2 Delivery O2 Flow Rate FiO2 10/04/18 05:13 98.9 64 18 134/77 (96) 98 10/03/18 23:12 98.9 76 18 124/82 (96) 99 10/03/18 20:20 99.1 75 18 125/71 (89) 99 10/03/18 16:46 98.6 75 18 123/83 (96) 10/03/18 15:30 60 18 132/82 (99) 10/03/18 15:16 63 18 119/56 (77) 10/03/18 15:01 98.4 65 18 116/70 (85) 10/03/18 14:46 95 18 122/65 (84) 10/03/18 14:15 85 18 126/77 (93) 10/03/18 14:00 77 18 122/80 (94) 10/03/18 13:45 71 18 127/83 (98) 10/03/18 13:30 97.1 68 18 114/75 (88) 10/03/18 13:15 70 18 115/77 (90) 10/03/18 13:00 56 18 119/77 (91) 10/03/18 12:45 65 18 113/75 (88) 10/03/18 12:30 58 18 119/77 (91) 10/03/18 12:25 62 18 126/83 (97) 10/03/18 12:20 74 18 123/81 (95) 10/03/18 12:15 54 18 127/79 (95) 10/03/18 12:10 66 18 124/82 (96) 10/03/18 12:05 53 18 126/80 (95) 10/03/18 12:00 60 18 137/76 (96) 10/03/18 11:45 96.1 68 18 123/75 (91) 10/03/18 11:30 56 18 113/74 (87) 10/03/18 11:15 58 18 117/72 (87) 10/03/18 11:00 95.6 60 18 116/70 (85) 99 10/03/18 10:45 69 18 112/70 (84) 99 10/03/18 10:30 63 18 109/57 (74) 100 10/03/18 10:15 59 18 112/69 (83) 98 10/03/18 09:56 57 18 108/63 (78) 97 10/03/18 09:50 53 18 108/64 (79) 98 10/03/18 09:46 55 18 115/66 (82) 98 10/03/18 09:38 57 18 112/68 (83) 100 10/03/18 09:35 59 18 116/72 (87) 99 10/03/18 09:32 68 18 115/66 (82) 99 10/03/18 09:29 51 18 115/70 (85) 100 10/03/18 09:26 54 18 116/69 (85) 100 10/03/18 09:23 50 18 114/66 (82) 100 10/03/18 09:20 52 18 115/66 (82) 10/03/18 09:17 96.6 45 18 113/61 (78) 99 10/03/18 09:12 57 18 119/67 (84) 10/03/18 09:07 57 18 119/68 (85) 10/03/18 08:52 71 18 116/54 (74) 100 10/03/18 08:20 60 18 127/83 (98) 10/03/18 07:50 68 18 122/70 (87) I & O 10/04/18 07:00 Intake Total 3500 ml Output Total 400 ml Balance 3100 ml Capillary Refill : General Appearance: No Apparent Distress Neck: Supple Gastrointestinal: soft (with uterus firm) Results Lab Laboratory Tests 10/04/18 05:12: White Blood Count 15.2H, Red Blood Count 3.41L, Hemoglobin 10.7L, Hematocrit 33L , Mean Corpuscular Volume 97, Mean Corpuscular Hemoglobin 31, Mean Corpuscular Hemoglobin Concent 32, Red Cell Distribution Width 13.4, Platelet Count 257, Mean Platelet Volume 11.3H, Neutrophils (%) (Auto) 66, Lymphocytes (%) (Auto) 23, Monocytes (%) (Auto) 9, Eosinophils (%) (Auto) 2, Basophils (%) (Auto) 0, Neutrophils # (Auto) 10.1H, Lymphocytes # (Auto) 3.5, Monocytes # (Auto) 1.4H, Eosinophils # (Auto) 0.2, Basophils # (Auto) 0.0 Assessment/Plan Assessment/Plan Assess & Plan/Chief Complaint 1. S/P day 1 -continue routine PP care orders Clinical Quality Measures DVT/VTE Risk/Contraindication: Risk Factor Score Per Nursin RFS Level Per Nursing on Admit: 1=Low/No VTE PPX HIREN THOMAS MD Oct 04, 2018 07:48
[2018-10-04 10:32] VITALS: BP 114/68
--- NOTE | 2018-10-04 10:35 | NUR ---
PT LYING IN BED WITH . VS OBTAINED. INITIAL SHIFT ASSESSMENT COMPLETED; SEE INTERVENTION FOR FURTHER.
--- NOTE | 2018-10-04 11:15 | NUR ---
PT UP IN THE SHOWER.
[2018-10-04 12:49] VITALS: BP 123/82
[2018-10-04] MEDS: DOCUSATE SODIUM 100 MG (COLACE) CAP PO SCH ×2 (12:49→22:13)
--- NOTE | 2018-10-04 12:49 | NUR ---
PT IN BED. VS OBTAINED. MEDS GIVEN PO; SEE EMAR FOR FURTHER.
--- NOTE | 2018-10-04 13:32 | Anesthesia-Regional Post-Op ---
Regional Patient Condition Mental Status: Alert, Oriented x3 Circulation: Same as Pre-Op Headache: Absent Sensation: Full Recovery Motor Block: Absent Post Op Complications Complications None Follow Up Care/Instructions Patient Instructions None needed. Anesthesia/Patient Condition Patient is doing well, no complaints, stable vital signs, no apparent adverse anesthesia problems. No complications reported per nursing. TAINA REIS CRNA Oct 04, 2018 13:32
--- NOTE | 2018-10-04 13:36 | NUR ---
THIS RN TO PT'S BEDSIDE. PT C/O A RASH ON HER OUTER RIGHT THIGH. DR NOTIFIED, NEW ORDER RECEIVED.
--- NOTE | 2018-10-04 14:18 | NUR ---
CM/SS responded to consult for SS. Baby is named Tamar Barriga. MOB states that she has all necessities for baby ie) pack n play, car seats, clothes, diapers. She stated that she has a family member that had a baby 5months ago and so has been getting lots from them. She has WIC and Healthy Families. During our conversation many family members / friends came in. Will attempt to re-visit at a later time.
--- NOTE | 2018-10-04 14:22 | NUR ---
PT IN BED, HOLDING , REQUESTING . LUNCH TRAY REMOVED. NO FURTHER NEEDS VOICED.
--- NOTE | 2018-10-04 16:39 | NUR ---
PT IN BED, LIGHTS OUT. PT VOICES THAT SHES PREPPING TO ORDER FOOD, DENIES ANY NEEDS AT THIS TIME.
[2018-10-04] MEDS ORDERED: HYDROCORTISONE 2.5% CREAM (ANUSOL-HC) 30 GM ONE (16:50)
[2018-10-04] MEDS: HYDROCORTISONE 2.5% CREAM (ANUSOL-HC) 30 GM TOP SCH (17:00)
[2018-10-04 18:28] VITALS: BP 128/84
--- NOTE | 2018-10-04 18:31 | NUR ---
PT IN BED. VISITORS AT THE BEDSIDE. VS OBTAINED. ROUTINE MOTRIN GIVEN PO; SEE EMAR FOR FURTHER. NO NEEDS VOICED.
[2018-10-04] MEDS: CATHETER FLUSH 10 ML SYR IV SCH ×3 (22:12→22:14)
[2018-10-04] MEDS: ACETAMINOPHEN 500 MG TAB (TYLENOL) PO SCH ×3 (22:12→22:14)
[2018-10-05] VITALS: BP 134/74
[2018-10-05] MEDS: IBUPROFEN 600 MG (MOTRIN) TAB PO SCH ×2 (00:09→05:52)
[2018-10-05] MEDS: ACETAMINOPHEN 500 MG TAB (TYLENOL) PO SCH ×2 (00:09→06:14)
[2018-10-05 05:51] VITALS: BP 109/70
[2018-10-05] MEDS: CATHETER FLUSH 10 ML SYR IV SCH (06:14)
--- NOTE | 2018-10-05 06:56 | Discharge Summary ---
Diagnosis/Chief Complaint Date of Admission Oct 03, 2018 at 05:53 Date of Discharge October 05, 2018 Discharge Date: Oct 05, 2018 Discharge Time: 10:00 Admission Diagnosis Admission Diagnosis 1. Intrauterine at 38 weeks gestation 2. Oligohydramnios 3. IUGR Discharge Diagnosis 1. Intrauterine at 38 weeks gestation 2. Oligohydramnios 3. IUGR Reason Hospital Visit 18-year-old 4 now T1who initially presents to labor and delivery for induction of labor. She was noted to be at 38 weeks gestation with oligohydramnios. She had had multiple NST as well as biophysical profiles. Her EDC was October 16, 2018. Discharge Summary-OBS Procedures 1. Epidural per anesthesia 2. Spontaneous vaginal delivery with suction assistance 3. Repair of midline episiotomy Discharge Physical Examination Allergies: Coded Allergies: diphenhydramine (Verified Adverse Reaction, Unknown, hyperactivity, 09/20/18) Vitals & I&Os Vital Signs Date Time Temp Pulse Resp B/P (MAP) Pulse Ox O2 Delivery O2 Flow Rate FiO2 10/05/18 05:51 98.7 63 18 109/70 (83) 98 Room Air General Appearance: No Acute Distress Respiratory: Clear to Auscultation Cardiovascular: Regular Rate Abdominal: Normal Bowel Sounds, Soft Skin: Other (rash along her posterior right thigh) Hospital Course Patient was noted to have hemoglobin of 10.8 on October 03 prior to delivery. She underwent amniotomy with placement of scalp electrode. She required low- dose Pitocin augmentation. Epidural was placed for anesthesia. Ultimately she went on to completion and delivered with suction assistance a term viable female. Infant's weight was noted to be 5 lbs. 11 oz. Apgars were 8 at 1 minute and 9 at 5 minutes. On October 04, 2018 her hemoglobin was 10.7. She was noted to breast-feed her child. She had some cramping that was controlled with ibuprofen. Ultimately she was felt ready for dismissal on the morning of October 05, 2018. All questions were answered. She will follow-up in 6 weeks. Discharge Instructions to patient/family Please see electronic discharge instructions given to patient. Discharge Medications Reviewed and agree with Discharge Medication list on patient's Discharge Instruction sheet Clinical Quality Measures DVT/VTE Risk/Contraindication: Risk Factor Score Per Nursin RFS Level Per Nursing on Admit: 1=Low/No VTE PPX HIREN THOMAS MD Oct 05, 2018 06:56
[2018-10-05] MEDS ORDERED: IBUP-844 PO (06:58)
--- NOTE | 2018-10-05 06:59 | Discharge Inst-Women's Service ---
Discharge Inst-Women's Serv Depart Medication/Instructions New, Converted or Re-Newed RX: Transmitted to Pharmacy ([facility] in [place]) Consults/Follow Up Additional Follow Up: Yes ( weeks with Dr. Thomas) Activity Activity: Activity as Tolerated Driving Instructions: No Driving for 1 Week Nothing Inside Vagina: No [place] (for 6 weeks) Diet Discharge Diet: Regular Diet Return to The Hospital For: as below Symptoms to Report to : Pain Increased, Fever Over 101 Degrees F, Vaginal Bleeding Increase, Vaginal Discharge Foul For Any Problems or Questions: Contact Your Physician HIREN THOMAS MD Oct 05, 2018 06:59
[2018-10-05] MEDS: HYDROCORTISONE 2.5% CREAM (ANUSOL-HC) 30 GM TOP SCH (09:25)
[2018-10-05] MEDS ORDERED: TETANUS,DIPTH,PERTUSS P/F (BOOSTRIX) 0.5 ML VIAL IM ONE (10:28)
--- NOTE | 2018-10-05 10:30 | NUR ---
ASSUMED CARE OF PT FROM RAJWINDER BRUNER.
[2018-10-05] MEDS: WITCH HAZEL(TUCKS) 40 EA JAR TOP PRN (10:37)
[2018-10-05] MEDS: BENZOCAINE/MENTHOL (DERMOPLAST) 56 ML CAN TP PRN (10:37)
[2018-10-05] MEDS: DOCUSATE SODIUM 100 MG (COLACE) CAP PO SCH (10:39)
== END 2018-10-05 10:55 | disposition home or self-care (01) | DRG 807 ==
LOC: LDRP 05:53
PROVIDERS: ADMIT Family Medicine; ATTEND Family Medicine
PROC: 10D07Z6 Extraction of Products of Conception, Vacuum, Via Natural or Artificial Opening (ICD-10-PCS; principal; 2018-10-03)
PROC: 0W8NXZZ Division of Female Perineum, External Approach (ICD-10-PCS; 2018-10-03)
PROC: 10907ZC Drainage of Amniotic Fluid, Therapeutic from Products of Conception, Via Natural or Artificial Opening (ICD-10-PCS; 2018-10-03)
DX: O41.03X0 Oligohydramnios, third trimester, not applicable or unspecified (principal); O36.5930 Maternal care for other known or suspected poor fetal growth, third trimester, not applicable or unspecified; Z3A.38 38 weeks gestation of pregnancy; Z37.0 Single live birth; Z23 Encounter for immunization
CPT/HCPCS: 36415; 85025; 86850; 86900; 86901; 88307; 90715

== ENCOUNTER → 2019-04-07 | Outpatient (CLI) | payer OTHER, MEDICAID ==
[~2019-04-07] MED LIST changes: +IBUP-844 PO
--- NOTE | 2019-04-07 17:05 | Diagnostic Imaging Report ---
CLINICAL INDICATION: Patient fell down stairs 3 days ago. Patient with bruising to dorsal surface of the left foot. EXAM: X-ray of the left foot, 3 views. COMPARISON: None. FINDINGS AND IMPRESSION: 1: There is spurring of the navicular bone on the dorsal aspect with no cortical disruption seen. This may be from prior traumatic or advanced degenerative changes. If there is significant pain in this region, then CT scan may better evaluate for subtle fracture of the region. 2: Otherwise, there is no acute fracture or dislocation. 3: There is small calcaneal spur at the plantar attachment. 4: The remainder of the left foot is unremarkable. Dictated by: Dictated on workstation # [id number]
== END ==
LOC: RAD 16:03
PROVIDERS: ATTEND Family Medicine
DX: S90.32XA Contusion of left foot, initial encounter (principal); M77.32 Calcaneal spur, left foot; W19.XXXA Unspecified fall, initial encounter
CPT/HCPCS: 73630

== ENCOUNTER 2019-04-14 13:10 | Outpatient (CLI) | payer MEDICAID, OTHER | END 2019-04-14 14:25 | disposition home or self-care (01) | LOC: SLEEP 13:10 | PROVIDERS: ATTEND Family Medicine | DX: G47.00 Insomnia, unspecified (principal); F39 Unspecified mood [affective] disorder; R06.83 Snoring ==

== ENCOUNTER → 2019-04-14 | Outpatient (CLI) | payer MEDICAID, OTHER ==
--- NOTE | 2019-04-14 09:45 | Diagnostic Imaging Report ---
PROCEDURE: US Gallbladder. TECHNIQUE: Multiple real-time grayscale images were obtained over the right upper quadrant in various projections. INDICATION: Right upper quadrant pain. The liver is upper limits of normal in size at 18 cm. No discrete liver mass is detected. The portal vein is patent and shows normal direction of flow. Gallbladder is without stones or sludge. No wall thickening or biliary ductal dilatation is identified. The visualized pancreas is unremarkable. Aorta proximally is visualized and is normal caliber. IVC is patent. Right kidney is without calculi or hydronephrosis. There is no ascites. IMPRESSION: Unremarkable gallbladder ultrasound. Dictated by: Dictated on workstation # [id number]
== END ==
LOC: RAD 07:00
PROVIDERS: ATTEND Family Medicine
DX: R10.11 Right upper quadrant pain (principal)
CPT/HCPCS: 76705

== ENCOUNTER 2019-04-20 15:49 | Emergency (ER) | payer MEDICAID, OTHER ==
[~2019-04-20] VITALS: Ht 162 cm; Wt 82.8 kg
[2019-04-20 16:49] LABS: BASOPHILS % (AUTO) 0 % (0-10); EOSINOPHILS # (AUTO) 0.3 10^3/uL (0.0-0.3); EOSINOPHILS % (AUTO) 4 % (0-10); HEMATOCRIT 44 % (35-52); HEMOGLOBIN 14.1 G/DL (11.5-16.0); LYMPHOCYTES # (AUTO) 2.2 X 10^3 (1.0-4.0); LYMPHOCYTES % (AUTO) 33 % (12-44); MEAN CORPUSCULAR HEMOGLOBIN 30 PG (25-34); MEAN CORPUSCULAR HGB CONC 32 G/DL (32-36); MEAN CORPUSCULAR VOLUME 93 FL (80-99); MEAN PLATELET VOLUME 10.2 FL (7.4-10.4); MONOCYTES # (AUTO) 0.6 X 10^3 (0.0-1.0); MONOCYTES % (AUTO) 9 % (0-12); NEUTROPHILS # (AUTO) 3.5 X 10^3 (1.8-7.8); NEUTROPHILS % (AUTO) 53 % (42-75); PLATELET COUNT 317 10^3/uL (130-400); RED CELL DISTRIBUTION WIDTH 13.4 % (10.0-14.5); WHITE BLOOD COUNT 6.7 10^3/uL (4.3-11.0)
--- NOTE | 2019-04-20 16:53 | ED Neurological Problem ---
General Chief Complaint: Neurological Problems Stated Complaint: L SIDE NUMBNESS/FACIAL PAIN Nursing Triage Note: PT PRESENTS TO ED WITH COMPLAINT OF L SIDED FACIAL NUMBNESS AND DROOP, L ARM WEAKNESS, AND L LEG WEAKNESS STARTING AT 0900 04/19/2019. PT SISTER REPORTS SOME CONFUSION WITH DATES NOTED EARLIER TODAY. Nursing Sepsis Screen: No Definite Risk Source: patient Exam Limitations: no limitations History of Present Illness Date Seen by Provider: Apr 20, 2019 Time Seen by Provider: 16:50 Initial Comments To ER with reports of left-sided facial numbness that she awakened with this morning, she states that her left arm "doesn't seem to want to work", left knee pain. Symptoms began yesterday morning at 9 AM upon awakening. She has pain in her head that "feels like someone is stabbing me" Timing/Duration: other Severity: moderate Associated Symptoms: numbness in legs/feet Allergies and Home Medications Allergies Coded Allergies: diphenhydramine (Verified Adverse Reaction, Unknown, hyperactivity, 09/20/18) Home Medications Acyclovir 400 Mg Tablet, 400 MG PO 5XD Prescribed by: JENY AGUILAR on 04/20/19 173 Ibuprofen 600 Mg Tablet, 600 MG PO Q6HR Prescribed by: HIREN THOMAS on 10/05/18 0658 Prednisone 20 Mg Tab, 20 MG PO DAILY Take 3 tabs(60mg)daily, decrease by 1/2 tab(10mg)daily. Prescribed by: JENY AGUILAR on 04/20/191733 Patient Home Medication List Home Medication List Reviewed: Yes Review of Systems Review of Systems Constitutional: see HPI Eyes: No Symptoms Reported Ears, Nose, Mouth, Throat: no symptoms reported Respiratory: no symptoms reported Cardiovascular: no symptoms reported Genitourinary: no symptoms reported Musculoskeletal: no symptoms reported Skin: no symptoms reported Psychiatric/Neurological: See HPI, Headache Endocrine: No Symptoms Reported Hematologic/Lymphatic: No Symptoms Reported Past Nanynob-Eusdiy-Uifijo Hx Patient Social History Alcohol Use: Denies Use Recreational Drug Use: No Smoking Status: Never a Smoker Type Used: Cigarettes Former Smoker, Quit: July 24, 2016 Recent Foreign Travel: No Contact w/Someone Who Travel: No Recent Infectious Disease Expo: No Recent Hopitalizations: Yes (PTL - early August 2018) Physical Abuse: No Sexual Abuse: No Mistreated: No Fear: No Immunizations Up To Date Tetanus Booster (TDap): Unknown PED Vaccines UTD: No Seasonal Allergies Seasonal Allergies: Yes (mild hay fever, pet dandruff) Past Medical History Surgeries: Yes (hernia repair, D&C x1) Abdominal, Adenoidectomy, Tonsillectomy Respiratory: No Pneumonia Cardiac: No Neurological: No Sexually Transmitted Disease: No HIV/AIDS: No Genitourinary: Yes UTI-Chronic Gastrointestinal: No Musculoskeletal: No Endocrine: No HEENT: No Cancer: No Psychosocial: Yes (bpd) ADD/ADHD, Anxiety, PTSD, Bipolar, Depression Integumentary: No Blood Disorders: No Adverse Reaction/Blood Tranf: No Family Medical History Headache disorder 19 FATHER Hypertension 19 FATHER Hypoglycemia 19 MOTHER Myocardial infarction GRANDMOTHER Physical Exam Vital Signs Vital Signs - First Documented 04/20/19 16:00 Temp 36.4 Pulse 82 Resp 16 B/P (MAP) 125/93 (104) Pulse Ox 96 Capillary Refill : Less Than 3 Seconds Height, Weight, BMI Height: 5'4.00" Weight: 183lbs. 0.0oz. 83.887493ka; 31.00 BMI Method:Stated General Appearance: WD/WN, no apparent distress, other (left side of face is flaccid including the left side of the forehead. Despite allegations that "left arm doesn't want to work right" when talking to me she is playing with the pulse oximeter probe with her hand and fingers and talking with her hands. She has some difficulty closing left eye. I discussed with her the need to get some eyedrops that are moisturizing and an eye patch to sleep with.) HEENT: PERRL/EOMI, normal ENT inspection Respiratory: no respiratory distress, no accessory muscle use Gastrointestinal: normal bowel sounds, soft Neurologic/Psychiatric: alert, normal mood/affect, oriented x 3 Crainal Nerves: normal hearing, normal speech, PERRL Motor/Sensory: sensory deficit (left face) Skin: normal color, warm/dry She and rate without any antalgic gait. She is alert and oriented. GCS 15. Con versation is appropriate. She is laughing smiling and well-appearing. She has no drift of the left arm. Fine motor skills left arm and hand intact as she is using it for variety tasks during her ER stay during my exam. Progress/Results/Core Measures Results/Orders Lab Results Laboratory Tests Test 04/20/19 16:39 Range/Units White Blood Count 6.7 4.3-11.0 10^3/uL Red Blood Count 4.68 4.35-5.85 10^6/uL Hemoglobin 14.1 11.5-16.0 G/DL Hematocrit 44 35-52 % Mean Corpuscular Volume 93 80-99 FL Mean Corpuscular Hemoglobin 30 25-34 PG Mean Corpuscular Hemoglobin Concent 32 32-36 G/DL Red Cell Distribution Width 13.4 10.0-14.5 % Platelet Count 317 130-400 10^3/uL Mean Platelet Volume 10.2 7.4-10.4 FL Neutrophils (%) (Auto) 53 42-75 % Lymphocytes (%) (Auto) 33 12-44 % Monocytes (%) (Auto) 9 0-12 % Eosinophils (%) (Auto) 4 0-10 % Basophils (%) (Auto) 0 0-10 % Neutrophils # (Auto) 3.5 1.8-7.8 X 10^3 Lymphocytes # (Auto) 2.2 1.0-4.0 X 10^3 Monocytes # (Auto) 0.6 0.0-1.0 X 10^3 Eosinophils # (Auto) 0.3 0.0-0.3 10^3/uL Basophils # (Auto) 0.0 0.0-0.1 10^3/uL Sodium Level 140 135-145 MMOL/L Potassium Level 3.9 3.6-5.0 MMOL/L Chloride Level 110 H 98-107 MMOL/L Carbon Dioxide Level 18 L 21-32 MMOL/L Anion Gap 12 5-14 MMOL/L Blood Urea Nitrogen 12 7-18 MG/DL Creatinine 0.70 0.60-1.30 MG/DL Estimat Glomerular Filtration Rate > 60 BUN/Creatinine Ratio 17 Glucose Level 76 70-105 MG/DL Calcium Level 9.5 8.5-10.1 MG/DL Corrected Calcium 9.5 8.5-10.1 MG/DL Total Bilirubin 0.1 0.1-1.0 MG/DL Aspartate Amino Transf (AST/SGOT) 20 5-34 U/L Alanine Aminotransferase (ALT/SGPT) 20 0-55 U/L Alkaline Phosphatase 65 40-136 U/L C-Reactive Protein High Sensitivity 0.32 0.00-0.50 MG/DL Total Protein 7.5 6.4-8.2 GM/DL Albumin 4.0 3.2-4.5 GM/DL Serum Test, Qualitative NEGATIVE NEGATIVE My Orders Orders - JENY AGUILAR APRN Ua Culture If Indicated (04/20/19 16:32) Hs C Reactive Protein (04/20/19 16:32) Cbc With Automated Diff (04/20/19 16:32) Comprehensive Metabolic Panel (04/20/19 16:32) Hcg,Qualitative Serum (04/20/19 16:32) Drug Screen Stat (Urine) (04/20/19 16:32) Ed Iv/Invasive Line Start (04/20/19 16:32) Ct Head Wo (04/20/19 16:50) Acyclovir Capsule/Tablet (Zovirax Caps (04/20/19 17:30) Prednisone Tablet (Deltasone Tablet) (04/20/19 17:30) Medications Given in ED Current Medications Medications Dose Ordered Sig/Mayda Route Start Time Stop Time Status Last Admin Dose Admin Prednisone 60 mg ONCE ONCE PO 04/20/19 17:30 04/20/19 17:31 DC 04/20/19 17:51 60 MG Vital Signs/I&O 04/20/19 16:00 Temp 36.4 Pulse 82 Resp 16 B/P (MAP) 125/93 (104) Pulse Ox 96 Blood Pressure Mean: 104 Departure Communication (Admissions) 1728-patient states that her mother is an RN at [facility] and would like her to be transferred there since there is no neurology service available here. She continues to have full function of her left arm rolling up and unrolling tourniquet using fingers of both hands. Fine motor skills intact. Speech intact and conversation appropriate. Labs unremarkable CT unremarkable. 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 Impression Primary Impression: Cranial nerve VII palsy Disposition: 01 HOME, SELF-CARE Condition: Stable Departure-Patient Inst. Decision time for Depature: 17:31 Referrals: HIREN THOMAS MD (PCP/Family) Primary Care Physician Patient Instructions: Gomez's Palsy (DC) Add. Discharge Instructions: 1. Steroids and antivirals as directed. Unfortunately this may persist from as few as a few days to 3-6 months. Follow-up with your doctor this week for recheck. Return to ER for any concerns. Scripts Prednisone (Prednisone) 20 Mg Tab 20 MG PO DAILY, #11 TAB Take 3 tabs(60mg)daily, decrease by 1/2 tab(10mg)daily.. Prov: JENY AGUILAR APRN 04/20/19 Acyclovir (Acyclovir) 400 Mg Tablet 400 MG PO 5XD, #35 TAB . Prov: JENY AGUILAR APRN 04/20/19 Copy Copies To 1: HIREN THOMAS MD, PETER J APRN Apr 20, 2019 16:53
[2019-04-20 17:17] LABS: ALANINE AMINOTRANSFERASE 20 U/L (0-55); ALKALINE PHOSPHATASE 65 U/L (40-136); BILIRUBIN,TOTAL 0.1 MG/DL (0.1-1.0); BUN/CREATININE RATIO 17; CALCIUM 9.5 MG/DL (8.5-10.1); CARBON DIOXIDE 18 MMOL/L (21-32); CHLORIDE 110 MMOL/L (98-107); GFR ESTIMATED > 60; GLUCOSE 76 MG/DL (70-105); POTASSIUM 3.9 MMOL/L (3.6-5.0); SODIUM 140 MMOL/L (135-145); TOTAL PROTEIN 7.5 GM/DL (6.4-8.2)
--- NOTE | 2019-04-20 17:19 | Diagnostic Imaging Report ---
EXAMINATION: CT brain without contrast 04/20/2019. TECHNIQUE: Multiple contiguous axial images were obtained through the brain without the use of intravenous contrast. Auto Exposure Controls were utilized during the CT exam to meet ALARA standards for radiation dose reduction. INDICATION: Left facial numbness and droop, left arm weakness, left leg weakness. Symptoms started at 0900 hours today. Confusion earlier today. FINDINGS: No hemorrhage or infarct is seen. No mass, mass effect or midline shift. No hydrocephalus. Osseous structures are intact and the visualized paranasal sinuses and mastoid air cells are unremarkable. IMPRESSION: 1. No acute process. If symptoms persist, MRI could further evaluate. Dictated by: Dictated on workstation # [id number]
[2019-04-20] MEDS ORDERED: ACYCLOVIR 400 MG TABLET (ZOVIRAX) PO SCH (17:30)
[2019-04-20] MEDS ORDERED: predniSONE 20 MG TAB PO ONE (17:30)
[2019-04-20] MEDS ORDERED: PRD20T PO ×2 (17:34→17:54)
[2019-04-20] MEDS ORDERED: ACYC400T PO ×2 (17:34→17:54)
[2019-04-20 18:00] VITALS: BP 125/74
== END 2019-04-20 17:55 | disposition home or self-care (01) ==
LOC: EDUNIT# 15:49 → ER 15:51
DX: G51.9 Disorder of facial nerve, unspecified (principal); Z88.8 Allergy status to other drugs, medicaments and biological substances; Z87.891 Personal history of nicotine dependence; Z90.89 Acquired absence of other organs; Z87.440 Personal history of urinary (tract) infections; Z82.49 Family history of ischemic heart disease and other diseases of the circulatory system
CPT/HCPCS: 36415; 70450; 80053; 84703; 85025; 86141

== ENCOUNTER → 2019-05-05 | Outpatient (CLI) | payer MEDICAID, OTHER ==
[~2019-05-05] MED LIST changes: +ACYC400T PO; +CATHETER FLUSH 10 ML SYR IV PRN; +PRD20T PO
--- NOTE | 2019-05-05 12:52 | Diagnostic Imaging Report ---
INDICATION: Abdominal pain. TECHNIQUE: Acquisitions were acquired of the abdomen after administration of 5.4 mCi of technetium-99m Choletec. 60 minutes following this, the patient drank one can of Ensure followed by another 60 minutes of imaging. FINDINGS: There is homogeneous uptake of isotope throughout the liver. There is significant accumulation within the gallbladder by 30 minutes. There is free flow of activity in the small bowel. Ejection fraction is calculated to be 96.6%. IMPRESSION: Normal hepatobiliary scan and ejection fraction. Dictated by: Dictated on workstation # [id number]
== END ==
LOC: CARD 09:46
PROVIDERS: ATTEND Family Medicine
DX: R10.11 Right upper quadrant pain (principal)
CPT/HCPCS: 78227

== ENCOUNTER → 2019-05-08 | Outpatient (CLI) | payer MEDICAID ==
[~2019-05-08] MED LIST changes: -CATHETER FLUSH 10 ML SYR IV PRN
--- NOTE | 2019-05-08 15:34 | Diagnostic Imaging Report ---
PROCEDURE: MR imaging of the brain without contrast. TECHNIQUE: Multiplanar, multisequence MR imaging of the brain was performed without contrast. INDICATION: Episodes of confusion and memory loss. Numbness on the left side of face. COMPARISON: CT head on 04/20/2019. Findings: No acute ischemia, mass, or hemorrhage. Please note the anterior frontal lobes are somewhat suboptimally evaluated due to metallic artifact. The ventricles, cortical sulci, and basilar cisterns are symmetric and unremarkable. The sellar and suprasellar regions have a normal appearance. Views of the hippocampi demonstrate a symmetric and unremarkable appearance. The major intracranial flow voids are intact. The brainstem and posterior fossa are unremarkable. The paranasal sinuses and globes and orbits are evaluated due to metallic artifact. The mastoid air cells demonstrate normal signal characteristics. The scalp and calvarium have a normal appearance. Impression: 1. No acute ischemia, mass, or hemorrhage. There is suboptimal evaluation of the bilateral anterior frontal lobes due to metallic artifact. Dictated by: Dictated on workstation # [id number]
== END ==
LOC: RAD 14:05
PROVIDERS: ATTEND Family Medicine
DX: R53.1 Weakness (principal)
CPT/HCPCS: 70551

== ENCOUNTER 2019-08-25 19:13 | Emergency (ER) | payer MEDICAID ==
[~2019-08-25] VITALS: Ht 162 cm; Wt 92.5 kg
[~2019-08-25 19:13] MED LIST changes: +ONDA-105; -ONDA4TAB10
[2019-08-25] MEDS ORDERED: KETOROLAC 30 MG/ML VIAL IM ONE (19:30)
[2019-08-25] MEDS ORDERED: ONDA4TAB11 PO (19:33)
--- NOTE | 2019-08-25 19:33 | ED Fall/Injury ---
General Chief Complaint: Trauma-Non Activation Stated Complaint: FALL/HIT HEAD Nursing Triage Note: Pt ambulates to [facility] with c/o fall last night and reports hitting head, approx 6 ft with LOC 3-5 min. Pt states she has had N/V x 2, headache, hot flashes and palpitations since fall last night. Pt is A&O x 4 on arrival. PT does not have any bleeding or open wounds on head. Source: patient Exam Limitations: no limitations History of Present Illness Date Seen by Provider: Aug 25, 2019 Time Seen by Provider: 19:17 Initial Comments The patient presents to ER by private conveyance with chief complaint that yesterday at about 7:00 at night, 12 hours prior to arrival she was at the [place] and jumped off of a 6 foot ledge and she does not remember what she hit but she knows there is rocks below and she blacked out. She said her told her she was only out for a few seconds. She since then has had some headache and waves of nausea without vomiting. She has ondansetron at home but has not been bad enough to take it. She took some Tylenol which only gave marginal relief of her headache. She would see Dr. Worley her primary care provider and was told it was likely a concussion and gave her instructions. Her symptoms did not worsen since then however she wanted to come out and make sure she was okay. She does have a history of some kind of TIAs that are being worked up but she has not seen a neurologist yet. She's not had any confusion, difficulty walking, falling or other neurologic symptoms besides moderate headache and occasional nausea. She has 3 kids at home and she says she has not been able to rest or sleep much because they are very active. Allergies and Home Medications Allergies Coded Allergies: diphenhydramine (Verified Adverse Reaction, Unknown, hyperactivity, ) Home Medications Acyclovir 400 Mg Tablet, 400 MG PO 5XD . Prescribed by: JENY AGUILAR on 04/20/191753 Ibuprofen 600 Mg Tablet, 600 MG PO Q6HR Prescribed by: HIREN THOMAS on 10/05/18 0658 Prednisone 20 Mg Tab, 20 MG PO DAILY Take 3 tabs(60mg)daily, decrease by 1/2 tab(10mg)daily.. Prescribed by: JENY AGUILAR on 04/20/191753 Patient Home Medication List Home Medication List Reviewed: Yes Review of Systems Review of Systems Constitutional: No chills, No diaphoresis Eyes: Denies Blindness, Denies Blurred Vision Ears, Nose, Mouth, Throat: denies ear pain, denies ear discharge Respiratory: No cough, No short of breath Cardiovascular: No chest pain, No edema Gastrointestinal: No abdominal pain, No constipation, No diarrhea; nausea (not presently); No vomiting Genitourinary: No dysuria, No frequency : No Musculoskeletal: No back pain, No gout All Other Systems Reviewed Negative Unless Noted: Yes Past Mledqlt-Hflqmh-Hwrloz Hx Patient Social History Recreational Drug Use: No Smoking Status: Former Smoker Type Used: Cigarettes Former Smoker, Quit: July 24, 2016 Recent Foreign Travel: No Contact w/Someone Who Travel: No Recent Infectious Disease Expo: No Recent Hopitalizations: Yes (PTL - early August 2018) Immunizations Up To Date Tetanus Booster (TDap): Unknown PED Vaccines UTD: No Seasonal Allergies Seasonal Allergies: Yes (mild hay fever, pet dandruff) Past Medical History Surgeries: Yes (hernia repair, D&C x1) Abdominal, Adenoidectomy, Tonsillectomy Respiratory: No Pneumonia Cardiac: No Neurological: No Sexually Transmitted Disease: No HIV/AIDS: No Genitourinary: Yes UTI-Chronic Gastrointestinal: No Musculoskeletal: No Endocrine: No HEENT: No Cancer: No Psychosocial: Yes (bpd) ADD/ADHD, Anxiety, PTSD, Bipolar, Depression Integumentary: No Blood Disorders: No Adverse Reaction/Blood Tranf: No Family Medical History Headache disorder 19 FATHER Hypertension 19 FATHER Hypoglycemia 19 MOTHER Myocardial infarction GRANDMOTHER Physical Exam Vital Signs Capillary Refill : Less Than 3 Seconds Height, Weight, BMI Height: 5'4.00" Weight: 183lbs. 0.0oz. 83.316465mc; 35.00 BMI Method:Stated General Appearance: WD/WN, no apparent distress HEENT: PERRL/EOMI, normal ENT inspection, TMs normal, pharynx normal, other (negative for hemotympanum, lee sign or raccoon eyes. Atraumatic head.) Neck: non-tender, full range of motion, supple, normal inspection Cardiovascular: normal peripheral pulses, regular rate, rhythm Respiratory: no respiratory distress, no accessory muscle use Neurologic/Psychiatric: referral coordinator II-XII nml as tested, no motor/sensory deficits, alert, normal mood/affect, oriented x 3 Skin: normal color, warm/dry Yuri Coma Score Best Eye Response: (4) Open Spontaneously Best Verbal Response: (5) Oriented Best Motor Response: (6) Obeys Commands [place] Total: 15 Progress/Results/Core Measures Results/Orders My Orders Orders - VANESSA MCHUGH Ketorolac Injection (Toradol Injection) (08/25/19 19:30) Progress Progress Note : Time: 19:30 Progress Note Neurologically intact. She has a headache and nausea after minor head injury. It has been Greater than 12 hours so she has completed a successful observation. Without neurologic deficit. She is at baseline. We will give her some Toradol for her headache symptoms or Tylenol did not help. She says she has naproxen and ondansetron at home. We'll send her a refill. We have given concussion teaching and will provide her with a note to encourage her to get her family to help her manage her children for the next 1-2 days or she can get sleep. We have given return precautions. We did offer to do CT scan today and she declined stating that she did not think it was necessary and after discussing it and a clinically decisions aborted manner we agree with this decision. Departure Impression Primary Impression: Fall Qualified Codes: W19.XXXA - Unspecified fall, initial encounter Additional Impression: Concussion Qualified Codes: S06.0X1A - Concussion with loss of consciousness of 30 minutes or less, initial encounter Disposition: 01 HOME, SELF-CARE Condition: Stable Departure-Patient Inst. Decision time for Depature: 19:31 Referrals: HIREN THOMAS MD (PCP/Family) Primary Care Physician Patient Instructions: Concussion, Adult (DC) Add. Discharge Instructions: For the next 2 days you should stick to a low stimuli environment. Do not put cell phones, tablets or otherwise sources of posterior eyes. Turn the volume down on her television and vegetate at home. Get plenty of rest. If your symptoms worsen you should get sleep. If you experience confusion, inability to wake up, inability to walk or other worrisome symptoms then you should promptly return to the ER. If you have a headache take Tylenol/acetaminophen 1000 mg every 8 hours as needed for pain. You may also use either ibuprofen 800 mg every 8 hours or naproxen 2 tablets twice a day. If you have nausea then take one tablet of ondansetron and place under your tongue every 6 hours as necessary. If you're having difficulty managing your concussion symptoms then you may follow-up with Dr. Thomas. All discharge instructions reviewed with patient and/or family. Voiced underst anding. Scripts Ondansetron (Ondansetron Odt) 4 Mg Tab.rapdis 4 MG PO Q6H PRN for NAUSEA/VOMITING, #8 TAB 0 Refills Prov: VANESSA MCHUGH 08/25/19 Work/School Note: Work Release Form Date Seen in the Emergency Department: Aug 25, 2019 Return to Work: Aug 27, 2019 Restrictions: No Restrictions Other Restrictions Listed Below: Vegetate at home. Low stimuli environment. VANESSA MCHUGH Aug 25, 2019 19:33
--- OUTSIDE RECORDS SUMMARY | 2019-08-25 23:34 | XMS REPORT | Clinical Summary ---
Author Author [facility] Organization [facility] Address Unknown Phone Unavailable Care Team Providers Care [employer] General Manager Name Role Phone No Pcp, Na PCP Unavailable Source Comments Some departments are not documenting in the electronic medical record. If you d o not see the information that you expected, contact Release of Information in [facility] [employer] Information Management department at [phone] for further assistan ce in locating additional records.[facility] Allergies Comments Active Allergy Reactions Severity Noted Date Reciprocal rxn and hyperactivity but young age - no recent retrials Diphenhydramine-Zinc SEE COMMENTS Low 6 Acetate Medications End Date Status Medication Sig Dispensed Refills Start Date Active norgestrel/ethinyl Take 1 Tab by 0 estradiol(+) mouth daily. (CRYSELLE-28;LO-OVRAL-8;L control O-OVRAL-28;LO-OVRAL-21;LO [id number]) tablet Active omeprazole(+) (PRILOSEC) Take 10 mg by 0 10 mg capsule mouth daily before breakfast. For heartburn Active ciprofloxacin (CIPRO) 500 0 mg tablet 7 Active medroxyPROGESTERone INJECT 1ML 3 (contraceptive) DOSE 7 (DEPO-PROVERA) syringe INTRAMUSCULAR LY DIRECTED Active nitrofurantoin 0 monohyd/m-cryst 7 (MACROBID) 100 mg capsule Active lurasidone (LATUDA) 40 mg Take 1 tablet 30 tablet 1 tabletIndications: by mouth 7 Bipolar 1 disorder, mixed daily before (HCC) dinner. Take with 350 calories Active Problems Problem Noted Date Bipolar 1 disorder, mixed 11/20/2016 ADHD (attention deficit hyperactivity disorder), comb ined type 12/31/2015 PTSD (post-traumatic stress disorder) 12/31/2015 Borderline personality disorder 12/31/2015 Social History Date Tobacco Use Types Packs/Day Years Used Current Some Day Smoker Smokeless Tobacco: Never Used Sex Assigned at Date Recorded Not on file Industry Job Start Date Occupation Not on file Not on file Not on file Travel End Travel History Travel Start No recent travel history available. Last Filed Vital Signs Reading Time Taken Comments Vital Sign 108/70 01/02/2017 1:46 PM CDT Blood Pressure 66 01/02/2017 1:46 PM CDT Pulse - - Temperature - - Respiratory Rate - - Oxygen Saturation - - Inhaled Oxygen Concentration 66 kg (145 lb 9.6 oz) 01/02/2017 1:46 PM CDT Weight 163.8 cm (5' 4.5") 05/19/2016 2:35 PM [employer] CHIL[employer]OD WORK[employer] Height 24.61 05/19/2016 2:35 PM [employer]IL[employer] WORK[employer] Body Mass Index Plan of Treatment Health Maintenance Due Date Last Done Comments HPV VACCINES (1 - 2-dose 2009 series) HIV SCREENING 2013 DTAP/TDAP VACCINES (1 - 2016 Tdap) HEPATITIS C SCREENING 2016 PHYSICAL (COMPREHENSIVE) 2016 EXAM CERVICAL CANCER SCREENING 2019 INFLUENZA VACCINE 12/25/2019 MENINGOCOCCAL VACCINE Aged Out No longer eligib le based on patient's age to (Juan ERICKSON) complete this topic Results Not on filefrom Last 3 Months Advance Directives Patient Welding Tester Explanation Type Date Recorded Advance 03/06/2016 10:55 PM Directive/DPOA
--- OUTSIDE RECORDS SUMMARY | 2019-08-25 23:35 | XMS REPORT ---
Author Author [employer] [facility] [employer] [facility] [employer] 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 Role Phone MAXX LAINEZ MD Unavailable MAXX LAINEZ MD Unavailable MAXX LAINEZ MD Unavailable MAXX LAINEZ MD Unavailable SATURNINO THOMAS MD Unavailable Unavailable SATURNINO THOMAS Unavailable SATURNINO THOMAS PCP ERROL JOHNSTON MD Unavailable Unavailable SATURNINO THOMAS MD Unavailable Unavailable ERROL JOHNSTON MD Unavailable Unavailable SATURNINO THOMAS MD Unavailable Unavailable PAT RANDALL MD Unavailable Unavailable JENY AGUILAR APRN Unavailable Unavailable MD Carl THOMAS PCP Unavailable Unavailable Unavailable Unavailable Unavailable Unavailable Allergies Normalized Allergy Reported Date of Reaction(s) Care Provider Facility Allergy Type classification allergen Allergy Onset Drug Allergy diphenhydrAMIN diphenhydrAMIN 09-21-2016 - hyperact ivSATURNINO morton , Not Available (25 sources.) E E jonny DOTY (000 00) Translations: Translations: e [ Propensity [ ([id number]), to adverse diphenhydramin hyperactivity reactions] e ([id number])] Medications Current Medications Medication Ingredient Drug Dose Dates Status Sig Sig Care Class(es) (Normalized) (Original) Provid er acyclovir Acyclovir Herpesvirus 04-20-19 Active no Acyclovir no 400 mg oral Nucleoside 20 - information Active 400 name tablet (2 Analog DNA 04-20-19 ORAL 5 Times sources.) Polymerase 20 Daily 35 Inhibitor, March Herpes 2019 Simplex 5:54pm . Virus Nucleoside Analog DNA Polymerase Inhibitor, Herpes Zoster Virus Nucleoside Analog DNA Polymerase Inhibitor predniSONE predniSONE no 04-20-19 Active no Prednisone n o 20 mg oral information 20 - information Active 20 name tablet (2 04-20-19 ORAL Daily sources.) 12 02April 20, 2019 5:54pm Take 3 tabs(60mg)da parker, decrease by 1/2 tab(10mg)zeferino ly.. Completed/Discontinued Medications Medication Ingredient Drug Dose Dates Status Sig Sig Care Class(es) (Normalized) (Original) Provid er clindamycin Clindamycin Lincosamide 300 mg 02-22-20 Complete no Clindamycin no 300 mg oral Antibacteri 18 - d information Hcl name capsule (7 al 08-15-19 Discontinued sources.) 19 300 ORAL Twice A Day February 21, 2018 4:19pm August 14, 2018 ferrous ferrous no 325 mg 09-23-19 Complete no Ferrous Saturnino sulfate 325 sulfate information 17 - d information Sulfat e 325 J mg oral 02-22-20 Mg Tablet, Galileo tablet (7 18 325 Mg Oral (no sources.) Twice A Day phone) 09/22/16 Discontinued fluconazole Fluconazole Azole 150 mg 08-28-19 Complete no F luconazole no 150 mg oral Antifungal 19 d information Discontin ued name tablet (6 150 ORAL sources.) Daily August 27, 2018 ibuprofen Ibuprofen Nonsteroida 600 mg 10-06-19 Complete take 1 Ibuprofen Saturnino 600 mg oral l 19 d tablet by (Ibu) 600 Mg J tablet (2 Anti-inflam mouth every Tablet 600 Galileo sources.) [facility] six hours Mg ORAL Give (no Every 6 Hr phone) On Schedule 30 Tab 10/05/18 naproxen Naproxen Nonsteroida 500 mg 09-23-19 Complete no Na proxen 500 Saturnino 500 mg oral l 17 - d information Mg Tablet, J tablet (7 Anti-inflam 02-22-20 500 Mg Oral Galileo sources.) [facility] 18 Every 12 (no Hours as phone) needed for Cramps 09/22/16 Discontinued nitrofurant NITROFURANT Nitrofuran 25 mg 09-23-19 Complete no Nitrofuranto no oin, OIN, Antibacteri 17 d information in name macrocrysta MACROCRYSTA al Monohyd/M-Cr ls 25 mg / LS / yst nitrofurant Nitrofurant Discontinued oin, oin, 100 ORAL monohydrate Monohydrate Twice A Day 75 mg oral Translation September 22, (14 s: [ 2017 FILLED sources.) NITROFURANT 09/20/16 #20 OIN, FOR A 10 DAY MACROCRYSTA THERAPY LS 25 MG / Nitrofurant oin, Monohy] ondansetron Ondansetron Serotonin-3 08-28-19 Complete no Ond ansetron no 4 mg oral Receptor 19 d information Hcl nam e tablet (7 Antagonist Discontinued sources.) NOT APPLICABLE August 27, 2018 4 mg 08-27-2018 Completed no Ondanset (no inform austyn Hcl phone) ation 4 Mg Tablet, Not Applicab le Disconti nued no Wcw455/Fa/O no 08-28-19 Complete no Mle596/Fa/Om no information mega3/Dha/F information 19 d information eg a3/Dha/Fis name (1 source.) nicolas Oil h Oil Discontinued 1 ORAL Daily August 27, 2018 no Vdi400/Fa/O no Complete take 1 Zwg085/Fa/Om (n o information mega3/Dha/F information d tablet by ega3/Dh a/Fis phone) (2 nicolas Oil mouth once h Oil sources.) ( daily, then ( Gummies) 1 take 1 Gummies) 1 Each tablet by Each Tab.chew mouth Tab.chew 1 Tab ORAL Daily no Vyo595/Fa/O no 08-28-19 Complete no Vot718/Fa/Om (no information mega3/Dha/F information 19 d information eg a3/Dha/Fis phone) (4 nicolas Oil h Oil sources.) ( ( Gummies) 1 Gummies) 1 Each Each Tab.chew, 1 Tab.chew, 1 Tab Oral Tab Oral Daily Discontinued sertraline Sertraline Serotonin 25 mg 02-22-20 Complete no Sertraline no 25 mg oral Reuptake 18 d information Hcl na me tablet (7 Inhibitor Discontinued sources.) 25 ORAL Daily February 21, 2018 Problems Active Problems Problem Normalized Date Last Normalized Normalized Provider Fa cility Classification Problem(s) Recorded Problem Problem Sta tus Duration Residual 34 weeks Episodic Active AYSE CARROLL Via codes; gestation of [facility] un[facility] - (19 sources.) [place] ([address]) Residual 35 weeks Episodic Active SATURNINO GALILEO , [facility] Via codes; gestation of [facility] un[facility] Hospital - (1 source.) [place] (75625) Residual 36 weeks Episodic Active SATURNINO GALILEO , [facility] Via codes; gestation of [facility] unclassified Hospital - (4 sources.) [place] (15077) Residual 38 weeks Episodic Active SATURNINO GALILEO , [facility] Via codes; gestation of [facility] unclassified Hospital - (7 sources.) [place] (64621) Other female Abnormal Chronic Active SATURNINO GALILEO , [facility] V ia genital uterine and [facility] disorders (7 vaginal Hospital - sources.) bleeding, [place] unspecified (33157) Residual Acquired Episodic Active ERROL [facility] Via codes; absence of Carly JOHNSTON unclassified other organs [facility] - (6 sources.) [place] (24615) Allergic Allergy status Episodic Active ERROL [facility] Via reactions (6 to other Carly JOHNSTON sources.) drugs, [facility] - medicaments [place] and biological (12526) substances status Attention-defi Attention-defi Chronic Active ERROL [facility] Via cit conduct cit Carly JOHNSTON and disruptive hyperactivity [facility] - behavior disorder, [place] disorders (4 unspecified (01556) sources.) type Inflammatory Bacterial Episodic Active SATURNINO GALILEO Via Ch risti diseases of vaginosis [address] [facility] female pelvic Translations: [place] organs (7 [ Bacterial (83293) sources.) vaginosis] Other nervous Gomez's palsy Episodic Active MD SATURNINO bahena Via system [place] [address] [facility] disorders (1 Hospital source.) (96194) Mood disorders Bipolar 08-14-2019 - Chronic Active ERROL [facility] Via (8 sources.) disorder, Carly JOHNSTON unspecified [facility] - Translations: [place] [ UNSPECIFIED (12742) MOOD [AFFECTIVE] DISORDER] Other Calcaneal Episodic Active SATURNINO GALILEO , [facility] Via connective spur, left [facility] tissue disease foot Hospital - (1 source.) [place] (37919) Spontaneous Complete or Episodic Active SATURNINO GALILEO , Not Available (20 unspecified (25703) sources.) spontaneous without complication Translations: [ Spontaneous ] Superficial Contusion of Episodic Active SATURNINO GALILEO , [facility] Via injury; left foot, [facility] contusion (1 initial Hospital - source.) encounter [place] (57145) Other Decreased Episodic Active AYSE CARROLL Via complications [facility] of movements, Hospital - (6 sources.) unspecified [place] trimester, not (78876) applicable or unspecified Other nervous Disorder of Episodic Active JENY AGUILAR [facility] Via system facial nerve, 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 (2 unspecified Hospital - sources.) [place] (52046) Other Encounter for Episodic Active SATURNINO THOMAS , Not Available screening for MD (48729) suspected screening of conditions mother (not mental Translations: disorders or [ ABNORMAL infectious FINDINGS ON disease) (20 DIAGNOSTIC sources.) IMAGING , ABNORMAL FINDINGS ON DIAGNOSTIC IMAGING , ENCOUNTER FOR OTHER SPECIFIED , ENCNTR FOR SUSP PROB W AMNIO CAVITY AND ] Immunizations Encounter for Episodic Active AYSE CARROLL Via and screening immunization [facility] for infectious Hospital - disease (10 [place] sources.) (04614) Other nervous Facial nerve Episodic Active MD SATURNINO Mac josef Via system disorder [place] [address] [facility] disorders (1 Hospital source.) (79820) Early or False labor Episodic Active AYSE CARROLL V ia threatened before 37 [facility] labor (3 completed Hospital - sources.) weeks of [place] gestation, (55458) third trimester Residual Family history Episodic Active ERROL TAVERA Via codes; of ischemic BRUCarly WHITT unclassified heart disease Hospital - (6 sources.) and other [place] diseases of (83131) the circulatory system Unclassified Finding of no information Active MD SATURNINO pelayo Via (1 source.) length of [address] ([address]) Residual Gestation Episodic Active MD SATURNINO Stephens Vi a codes; period, [address] (1 source.) (81052) Residual Gestation Episodic Active MD SATURNINO Stephens Vi a codes; period, [address] (1 source.) (95422) Residual Gestation Episodic Active MD SATURNINO Stephens Vi a codes; period, [address] (1 source.) (52356) Residual Gestation Episodic Active MD SATURNINO Cuming Vi a codes; period, 38 [place] [address] [facility] unclassified [facility] (1 source.) (81599) Hemorrhage Hemorrhage in Episodic Active ERROL AYSE Via during early Carly JOHNSTON ; , [facility] - abruptio unspecified [place] placenta; Translations: (78231) placenta [ Vaginal previa (10 bleeding sources.) during ] Influenza (4 Influenza no information Active SATURNINO THOMAS A scension Via sources.) [address] [facility] (60437) Residual Insomnia, 08-14-2019 - Episodic Active SATURNINO THOMAS [facility] Via codes; unspecified [facility]classified Hospital - (4 sources.) [place] (06933) Residual Less than 8 Episodic Active AYSE CARROLL V ia codes; [facility] unclassified gestation of Hospital - (3 sources.) [place] (48424) Conduction Long QT Chronic Active SATURNINO THOMAS [facility] Via disorders (15 syndrome [facility] sources.) Hospital - [place] (00417) Other Maternal care Episodic Active SATURNINO THOMAS [facility] Via complications for other [facility] of known or Hospital - (21 sources.) suspected poor [place] growth, (61129) third trimester, not applicable or unspecified Substance-rela Nicotine Chronic Active SATURNINO THOMAS , Not Available jose disorders dependence, (95518) (20 sources.) cigarettes, uncomplicated Other female Noninflammator Episodic Active SATURNINO THOMAS [facility] Via genital y disorder of [facility] disorders (20 uterus, Hospital - sources.) unspecified [place] (91018) Polyhydramnios Oligohydramnio Episodic Active SATURNINO THOMAS [facility] Via and other s, third [facility] problems of trimester, not Hospital - amniotic applicable or [place] cavity (17 unspecified (68749) sources.) Translations: [ PRETRM RENU ROM, ONSET LABOR W/N 24 HOUR, Leakage of amniotic fluid] Other Other Episodic Active SATURNINO THOMAS [facility] Via complications specified [facility] of diseases and Hospital - (7 sources.) conditions [place] complicating (64450) , childbirth and the puerperium Other Pain in left Episodic Active SATURNINO THOMAS [facility] Via non-traumatic wrist [facility] joint Hospital - disorders (15 [place] sources.) (69706) Spondylosis; 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 CARROLL V ia intervertebral thoracic spine [facility] disc Hospital - disorders; [place] other back () problems (17 sources.) Other nervous Paresthesia of Episodic Active AYSE DOMINGUEZ Via system skin DARCI [facility] disorders (2 Hospital - sources.) [place] (04856) Screening and Personal Episodic Active ERROL TAVERA Via history of history of Carly JOHNSTON mental health nicotine Hospital - and substance dependence [place] abuse codes (6 (01093) sources.) Genitourinary Personal Episodic Active AYSE DOMINGUEZ V ia symptoms and history [facility] ill-defined urinary Hospital - conditions (2 (tract) [place] sources.) infections (49696) Unclassified Planned no information Active MD SATURNINO bahena Via (1 source.) procedure [place] [address] [facility] () Anxiety Post-traumatic Chronic Active ERROL TAVERA Via disorders (4 stress PRESTON Carly sources.) disorder, MD Hospital - unspecified [place] (04781) Abdominal pain Right upper Episodic Active AYSE CARROLL Via (4 sources.) quadrant pain [facility] (23523) Other Single live Episodic Active AYSE CARROLL V ia and [facility] delivery Translations: Hospital - including [ Uterine [place] normal (11 contractions] (96350) sources.) Other Smoking Episodic Active SATURNINO THOMAS , Not Avai lable complications (tobacco) () of complicating (20 sources.) , first trimester Other lower Snoring 08-14-2019 - Episodic Active AYSE CARROLL Via respiratory [facility] disease (4 Hospital - sources.) [place] (57337) External cause Unspecified Episodic Active AYSE CARROLL Via codes: Fall (1 fall, initial [facility] source.) encounter [facility] (14704) Other female Vaginal Chronic Active MD SATURNINO Stephens Via genital bleeding [place] [address] [facility] disorders (1 Hospital source.) (12285) Malaise and Weakness Episodic Active AYSE CARROLL Vi a fatigue (3 [facility] [place] sources.) Hospital - [place] (22180) Unclassified no information no information Active SATURNINO CLEMONS Via [facility] (20 sources.) [address] [facility] () Past or Other Problems Problem Normalized Date Last Normalized Normalized Provider Fa cility Classification Problem(s) Recorded Problem Problem Sta tus Duration Residual 19 weeks no information no information SATURNINO THOMAS , Not Available codes; gestation of () unclassified (2 sources.) Residual 19 weeks Episodic Completed SATURNINO THOMAS [facility] Via codes; gestation of Carly [facility] - (1 source.) [place] () Residual 34 weeks no information no information SATURNINO THOMAS [facility] Via codes; gestation of [facility] - (9 sources.) [place] () Residual 35 weeks no information no information SATURNINO MARSHALLN , [facility] Via codes; gestation of Carly [facility] - (2 sources.) [place] () Residual 36 weeks no information no information SATURNINO THOMAS [facility] Via codes; gestation of [facility] - (3 sources.) [place] () Residual 38 weeks no information no information SATURNINO THOMAS [facility] Via codes; gestation of [facility] - (3 sources.) [place] () Other Encounter for no information no information SATURNINO MA , Not Available screening for other MD () suspected specified conditions (not mental screening disorders or infectious disease) (2 sources.) Other Infection of Episodic Completed ERROL [facility] Via complications other part of Carly JOHNSTON of genital tract [facility] - (4 sources.) in , [place] first () trimester Residual Less than 8 no information no information SATURNINO Jiménez , Not Available codes; weeks () unclassified gestation of (20 sources.) Other Other mental Episodic Completed ERROL [facility] Via complications disorders Carly JOHNSTON of complicating [facility] - (4 sources.) , [place] first () trimester Bacterial Other Episodic Completed ERROL [facility] Via infection; specified Carly JOHNSTON unspecified bacterial Hospital - site (4 agents as the [place] sources.) cause of () diseases classified elsewhere Residual Other no information no information ERROL Not Available codes; specified PRESTON , (70987) unclassified postprocedural MD (3 sources.) states Residual Other Episodic Completed ERROL [facility] Via codes; specified Carly JOHNSTON unclassified postprocedural Hospital - (1 source.) states [place] (95014) Other Personal Episodic Completed ERROL [facility] Via infections; history of Carly JOHNSTON including other [facility] - parasitic (4 infectious and [place] sources.) parasitic (19010) diseases Other lower Personal Episodic Completed ERROL [facility] Via respiratory history of Carly JOHNSTON disease (4 pneumonia MD Hospital - sources.) (recurrent) [place] (14223) Procedures Procedure Normalized Procedure Procedure Result Performer Facility Date 04-20-2019 CT of head without no information no name Asce nsion Via [facility] (83062) 10-03-2018 DIVISION OF FEMALE no information no name [facility] Via [facility] (72452) DIVISION OF FEMALE no information no name [facility] Via [facility] isti [facility] (14517) 10-03-2018 DRAINAGE OF AMNIOTIC no information no name [facility] Via [place], THERAP FROM [facility] (35052) DRAINAGE OF AMNIOTIC no information no name [facility] Via C hristi [place], THERAP FROM [facility] (93947) 10-03-2018 EXTRACTION OF PRODUCTS no information no name [facility] Via [facility] (94898) EXTRACTION OF PRODUCTS no information no name [facility] Via [facility] (42480) 02-21-2018 Transvaginal obstetric no information ERROL ELLIS Via [facility] ultrasonography [place] (72493) 09-18-2018 Ultrasonography for no information SATURNINO THOMAS Cuming Via [facility] (16533) profile without non-stress testing 09-25-2018 Us Ob >14WK Bio Phys no information SATURNINO THOMAS Cuming Via [facility] (87823) 09-11-2018 Us Ob >14WK Bio Phys no information SATURNINO THOMAS Cuming Via [facility] (61375) 04-14-2019 US scan of gallbladder no information no name Cuming Via [facility] (06034) 04-07-2019 X-ray of left foot no information no name Asce nsion Via [facility] (83915) Immunizations Normalized Immunization Date Notes Care Provider Facili ty Immunization NEGATED: Highlighted 10-04-2018 - no information SATURNINO MARSHALLN 6 5287 Cuming Via row has not 10-04-2018 [facility] occurred! (31320) measles, mumps and rubella virus vaccine tetanus toxoid, 10-05-2018 - no information no name [facility] Vi a [facility] reduced diphtheria 10-05-2018 [facility] g toxoid, and (47908) acellular pertussis vaccine, adsorbed vaccine no information SATURNINO THOMAS [address] Via [facility] Translations: [ [place] (82045) vaccine] Results Test Name Value Interpretation Reference Range Date Time Fa cility (Normalized) (Normalized) (Medline Reference) urine urobilinogen measurement by automated test strip (mass/volume) on 2018-09-13 Urobilinogen (U) NORMAL (no code) Cuming Via [Mass/Vol] [facility] (06246) urine total bilirubin detection by test strip on 2018-09-13 Bilirubin Ql (U) Negative (no code) Cuming Via [facility] (58964) urine protein assay by test strip, semi-quantitativ e on 2018-09-13 Protein Ql (U) 1+ (*) Cuming Via [facility] (85788) urine ph measurement by test strip on 2018-09-13 pH (U) 7 [pH] (no code) 4.6 - 8 [pH] Cuming Vi a [facility] (34205) urine nitrite detection by test strip on 2018-09-13 Nitrite Ql (U) Negative (no code) Cuming Via [facility] (53120) urine leukocyte esterase detection by dipstick on 2018-09-13 Leukocyte 1+ (*) Cuming Via esterase Test [facility] strip Ql (U) (34244) urine ketones detection by automated test strip on 2018-09-13 Ketones Auto 1+ (*) Cuming Via test strip Ql [facility] (U) (67145) urine glucose detection by automated test strip on 2018-09-13 Glucose Auto Negative (no code) Cuming Via test strip Ql [facility] (U) (64618) urine color determination on 2018-09-13 Color (U) YELLOW (no code) Cuming Via [facility] (21076) urine clarity determination on 2018-09-13 Clarity (U) CLEAR (no code) Cuming Via [facility] (05347) squamous epithelial cells detection in urine sediment by light microscopy on 2018-09-13 Epithelial no information (*) Cuming Via cells.squamous [facility] LM Ql (Urine (70915) sed) specific gravity of urine by test strip on 2018-09-13 Specific gravity 1.010 (*) Cuming Via (U) [Rel [facility] density] (55488) mucus detection in urine sediment by light microscopy on 2018-09-13 Mucus Ql (Urine MODERATE (*) Cuming Via sed) [facility] (08838) erythrocytes detection in urine sediment by light microscopy on 2018-09-13 RBC Ql (U) Negative (no code) Cuming Via [facility] (32042) crystals detection in urine sediment by light microscopy on 2018-09-13 Crystals LM Ql NONE (no code) Cuming Via (Urine sed) [facility] (45790) complete urinalysis with reflex to culture on 2018-09-13 Urinalysis YES (no code) Cuming Via complete W [facility] Reflex Culture (59241) panel - Urine casts detection in urine sediment by light microscopy on 2018-09-13 Casts LM Ql NONE (no code) Cuming Via (Urine sed) [facility] (53092) bacterial urine culture on 2018-09-13 Bacteria NO GROWTH (no code) Cuming Via identified Cx [facility] Nom (U) (92265) bacteria detection in urine sediment by light microscopy on 2018-09-13 Bacteria LM Ql MODERATE (*) Cuming Via (Urine sed) [facility] (35885) automated urine sediment leukocyte count by microscopy (number/high power field) on 2018-09-13 WBC LM.HPF no information (*) Cuming Via (Urine sed) [facility] [#/Area] (60175) automated urine sediment erythrocyte count by microscopy (number/high power field) on 2018-09-13 RBC LM.HPF NONE (no code) Cuming Via (Urine sed) [facility] [#/Area] (65945) venous blood hemoglobin measurement (mass/volume) on 2018-08-27 Hemoglobin (Bld) 12.8 g/dL (no code) 12.1 - 17.2 g/dL Asc ension Via [Mass/Vol] [facility] (62348) magnesium on 2018-08-27 Magnesium 1.8 mg/dL (no code) 1.7 - 2.2 mg/dL Cuming Via [Mass/Vol] [facility] (54963) blood neutrophils automated count (number/volume) on 2018-08-27 Neutrophils 7.7 10*3/uL (no code) 1.7 - 7 10*3/uL Cuming Via (Bld) [#/Vol] [facility] (10142) blood monocytes/100 leukocytes on 2018-08-27 Monocytes/100 10 % (no code) 2 - 8 % Cuming Vi a WBC (Bld) [facility] (58733) blood monocytes automated count (number/volume) on 2018-08-27 Monocytes (Bld) 1.2 10*3/uL (H) 0.3 - 0.9 Cuming Via [#/Vol] 10*3/uL [facility] (69148) blood lymphocytes automated count (number/volume) on 2018-08-27 Lymphocytes 2.6 10*3/uL (no code) 0.9 - 2.9 Cuming Via (Bld) [#/Vol] 10*3/uL [facility] (95774) blood leukocytes automated count (number/volume) on 2018-08-27 WBC (Bld) 11.8 10*3/uL (H) 3.5 - 10.5 Cuming Via [#/Vol] 10*3/uL [facility] (81674) blood hematocrit (volume fraction) on 2018-08-27 Hematocrit (Bld) 39 % (no code) 36.1 - 50.3 % Ascens ion Via [Volume [facility] fraction] (92187) blood erythrocytes automated count (number/volume) on 2018-08-27 RBC (Bld) 4.03 10*6/uL (L) 4.2 - 6.1 Cuming Via [#/Vol] 10*6/uL [facility] (87933) automated erythrocyte mean corpuscular volume on 2018-08-27 MCV (RBC) 96 fL (no code) 80 - 100 fL Cuming Via [Entitic vol] [facility] (99315) automated erythrocyte mean corpuscular hemoglobin concentration measurement (mass/volume) on 2018-08-27 MCHC (RBC) 33 g/dL (no code) 32 - 36 g/dL Cuming Vi a [Mass/Vol] [facility] (08846) automated erythrocyte mean corpuscular hemoglobin (mass per erythrocyte) on 2018-08-27 MCH (RBC) 32 pg (no code) 27 - 31 pg Cuming Via [Entitic mass] [facility] (97552) automated erythrocyte distribution width ratio on 2018-08-27 Erythrocyte 12.9 % (no code) 11.6 - 14.6 % [facility] V ia distribution [facility] width (RBC) ([id number]) [Ratio] automated eosinophil count on 2018-08-27 Eosinophils 0.3 10*3/uL (no code) 0.05 - 0.5 [facility] Via (Bld) [#/Vol] 10*3/uL [facility] (69869) automated blood platelet mean volume measurement on 2018-08-27 Platelet mean 10.8 fL (H) 7.2 - 11.7 fL [facility] volume (Bld) [facility] [Entitic vol] ([id number]) automated blood platelet count (count/volume) on 2018-08-27 Platelets (Bld) 312 10*3/uL (no code) 150 - 450 [facility] [#/Vol] 10*3/uL [facility] ([id number]) automated blood neutrophils/100 leukocytes on 2018-08-27 Neutrophils/100 65 % (no code) 40 - 60 % [facility] WBC (Bld) [facility] ([id number]) automated blood lymphocytes/100 leukocytes on 2018-08-27 Lymphocytes/100 22 % (no code) 20 - 40 % [facility] WBC (Bld) [facility] (74573) automated blood eosinophils/100 leukocytes on 2018-08-27 Eosinophils/100 2 % (no code) 1 - 4 % [facility] WBC (Bld) [facility] (38532) automated blood basophils/100 leukocytes on 2018-08-27 Basophils/100 0 % (no code) 0.5 - 1 % [facility] Vi a WBC (Bld) [facility] ([id number]) automated blood basophil count (count/volume) on 2018-08-27 Basophils (Bld) 0.0 10*3/uL (no code) 0 - 0.3 10*3/uL Ascen josef Via [#/Vol] [facility] (25780) urine urobilinogen measurement by automated test strip (mass/volume) on 2018-08-14 Urobilinogen (U) NORMAL (no code) [facility] [Mass/Vol] [facility] ([id number]) urine total bilirubin detection by test strip on 2018-08-14 Bilirubin Ql (U) Negative (no code) [facility] (93648) urine protein assay by test strip, semi-quantitativ e on 2018-08-14 Protein Ql (U) Negative (no code) [facility] (47765) urine ph measurement by test strip on 2018-08-14 pH (U) 7 [pH] (no code) 4.6 - 8 [pH] [facility] Vi a [facility] (21359) urine nitrite detection by test strip on 2018-08-14 Nitrite Ql (U) Negative (no code) [facility] (35015) urine leukocyte esterase detection by dipstick on 2018-08-14 Leukocyte 2+ (*) [facility] esterase Test [facility] strip Ql (U) (04691) urine ketones detection by automated test strip on 2018-08-14 Ketones Auto Negative (no code) [facility] test strip Ql [facility] (U) (77839) urine glucose detection by automated test strip on 2018-08-14 Glucose Auto Negative (no code) [facility] test strip Ql [facility] (U) (39521) urine color determination on 2018-08-14 Color (U) YELLOW (no code) [facility] Via [facility] (33595) urine clarity determination on 2018-08-14 Clarity (U) CLEAR (no code) [facility] Via [facility] (95361) squamous epithelial cells detection in urine sediment by light microscopy on 2018-08-14 Epithelial no information (*) [facility] Via cells.squamous [facility] LM Ql (Urine (06814) sed) specific gravity of urine by test strip on 2018-08-14 Specific gravity 1.010 (*) [facility] (U) [Rel [facility] density] (87259) other elements identification in urine sediment by light microscopy on 2018-08-14 Other elements FEW SPERM (*) [facility] LM Nom (Urine [facility] sed) (49874) mucus detection in urine sediment by light microscopy on 2018-08-14 Mucus Ql (Urine SMALL (*) [facility] Via sed) [facility] (90663) erythrocytes detection in urine sediment by light microscopy on 2018-08-14 RBC Ql (U) Negative (no code) [facility] Via [facility] (36482) crystals detection in urine sediment by light microscopy on 2018-08-14 Crystals LM Ql NONE (no code) [facility] Via (Urine sed) [facility] (66264) complete urinalysis with reflex to culture on 2018-08-14 Urinalysis NO (no code) [facility] complete W [facility] Reflex Culture ([id number]) panel - Urine casts detection in urine sediment by light microscopy on 2018-08-14 Casts LM Ql NONE (no code) [facility] Via (Urine sed) [facility] (75218) bacteria detection in urine sediment by light microscopy on 2018-08-14 Bacteria LM Ql TRACE (no code) [facility] Via (Urine sed) [facility] (35065) automated urine sediment leukocyte count by microscopy (number/high power field) on 2018-08-14 WBC LM.HPF no information (no code) [facility] Via (Urine sed) [facility] [#/Area] (28127) automated urine sediment erythrocyte count by microscopy (number/high power field) on 2018-08-14 RBC LM.HPF NONE (no code) [facility] Via (Urine sed) [facility] [#/Area] (10473) venous blood hemoglobin measurement (mass/volume) on 2018-02-21 Hemoglobin mass 12.2 g/dL (no code) 12.1 - 17.2 g/dL [facility] conc (Bld) [facility] (97563) urine urobilinogen measurement by automated test strip (mass/volume) on 2018-02-21 Urobilinogen NORMAL (no code) Via [facility] Test strip Qn Hospital (U) [place] (19213) urine total bilirubin detection by test strip on 2018-02-21 Bilirubin Ql (U) Negative (no code) Via [facility] (49294) urine protein assay by test strip, semi-quantitativ e on 2018-02-21 Protein Test Negative (no code) Via [facility] strip Ql (U) [facility] (92222) urine ph measurement by test strip on 2018-02-21 pH Test strip 6.5 [pH] (no code) 4.6 - 8 [pH] Via [facility] (U) [facility] (32135) urine nitrite detection by test strip on 2018-02-21 Nitrite Test Negative (no code) Via [facility] strip (U) [facility] (99648) urine leukocyte esterase detection by dipstick on 2018-02-21 Leukocyte Negative (no code) Via [facility] esterase Test Hospital strip Ql (U) [place] (83946) urine ketones detection by automated test strip on 2018-02-21 Ketones Negative (no code) Via [facility] Automated test Hospital strip Ql (U) [place] (55940) urine glucose detection by automated test strip on 2018-02-21 Glucose Negative (no code) Via [facility] Automated test Hospital strip Ql () [place] (06778) urine color determination on 2018-02-21 Color Nom (U) YELLOW (no code) Via [facility] (70722) urine clarity determination on 2018-02-21 Clarity Nom (U) CLEAR (no code) Via [facility] (25295) squamous epithelial cells detection in urine sediment by light microscopy on 2018-02-21 Epithelial no information (no code) Via [facility] cells.squamous [facility] LM Ql (Urine [place] sed) (10441) specific gravity of urine by test strip on 2018-02-21 Specific gravity 1.015 (*) Via [facility] Relative Density [facility] ([facility] (19834) mucus detection in urine sediment by light microscopy on 2018-02-21 Mucus LM Ql Negative (no code) [facility] (Urine sed) [facility] (19745) erythrocytes detection in urine sediment by light microscopy on 2018-02-21 RBC LM Ql (Urine Negative (no code) Via [facility] sed) [facility] (07158) crystals detection in urine sediment by light microscopy on 2018-02-21 Crystals LM Ql NONE (no code) Via [facility] (Urine sed) [facility] (56696) complete urinalysis with reflex to culture on 2018-02-21 Urinalysis NO (no code) Via [facility] Reflex Culture [place] panel - Urine ([id number]) casts detection in urine sediment by light microscopy on 2018-02-21 Casts LM Ql NONE (no code) Via [facility] (Urine sed) [facility] (59940) blood neutrophils automated count (number/volume) on 2018-02-21 Neutrophils Auto 3.4 10*3/uL (no code) 1.7 - 7 10*3/uL [facility] #/vol (Bld) [facility] (71713) blood monocytes/100 leukocytes on 2018-02-21 Monocytes/100 10 % (no code) 2 - 8 % Via [facility] WBC Auto (Bld) [facility] (52353) blood monocytes automated count (number/volume) on 2018-02-21 Monocytes Auto 0.6 10*3/uL (no code) 0.3 - 0.9 Via [facility] #/vol (Bld) 10*3/uL [facility] (85365) blood lymphocytes automated count (number/volume) on 2018-02-21 Lymphocytes Auto 1.7 10*3/uL (no code) 0.9 - 2.9 [facility] #/vol (Bld) 10*3/uL [facility] (94833) blood leukocytes automated count (number/volume) on 2018-02-21 WBC Auto #/vol 5.8 10*3/uL (no code) 3.5 - 10.5 Via [facility] (Bld) 10*3/uL [facility] (47175) blood hematocrit (volume fraction) on 2018-02-21 Hematocrit Auto 37 % (no code) 36.1 - 50.3 % Via Chr isti Volume Fraction [facility] ([facility]) [place] (39138) blood erythrocytes automated count (number/volume) on 2018-02-21 RBC Auto #/vol 3.96 10*6/uL (L) 4.2 - 6.1 Via Noe i (Bld) 10*6/uL [facility] (54120) bacteria detection in urine sediment by light microscopy on 2018-02-21 Bacteria LM Ql Negative (no code) [facility] (Urine sed) [facility] (41633) automated urine sediment leukocyte count by microscopy (number/high power field) on 2018-02-21 WBC LM.HPF NONE (no code) Via [facility] #/area (Urine Hospital [facility] [place] (84296) automated urine sediment erythrocyte count by microscopy (number/high power field) on 2018-02-21 RBC LM.HPF RARE (no code) Via [facility] #/area (Urine Hospital sed) [place] (21703) automated erythrocyte mean corpuscular volume on 2018-02-21 MCV Auto Entitic 94 fL (no code) 80 - 100 fL Via [facility] sti volume (RBC) [facility] (18169) automated erythrocyte mean corpuscular hemoglobin concentration measurement (mass/volume) on 2018-02-21 MCHC Auto mass 33 g/dL (no code) 32 - 36 g/dL Via [facility] conc (RBC) [facility] (25738) automated erythrocyte mean corpuscular hemoglobin (mass per erythrocyte) on 2018-02-21 MCH Auto Entitic 31 pg (no code) 27 - 31 pg [facility] mass (RBC) [facility] (50948) automated erythrocyte distribution width ratio on 2018-02-21 Erythrocyte 12.8 % (no code) 11.6 - 14.6 % Via [facility] distribution Hospital width Auto Ratio [place] (RBC) (02860) automated eosinophil count on 2018-02-21 Eosinophils Auto 0.2 10*3/uL (no code) 0.05 - 0.5 Via [facility] #/vol (Bld) 10*3/uL [facility] (06777) automated blood platelet mean volume measurement on 2018-02-21 Platelet mean 9.9 fL (no code) 7.2 - 11.7 fL Via [facility] volume Auto Hospital Entitic volume [place] (Bld) (01913) automated blood platelet count (count/volume) on 2018-02-21 Platelets Auto 269 10*3/uL (no code) 150 - 450 Via [facility] #/vol (Bld) 10*3/uL [facility] (25505) automated blood neutrophils/100 leukocytes on 2018-02-21 Neutrophils/100 58 % (no code) 40 - 60 % Via Noe i WBC Auto (Bld) [facility] (70087) automated blood lymphocytes/100 leukocytes on 2018-02-21 Lymphocytes/100 29 % (no code) 20 - 40 % Via Noe i WBC Auto (Bld) [facility] (08848) automated blood eosinophils/100 leukocytes on 2018-02-21 Eosinophils/100 3 % (no code) 1 - 4 % Via Noe i WBC Auto (Bld) [facility] (02560) automated blood basophils/100 leukocytes on 2018-02-21 Basophils/100 0 % (no code) 0.5 - 1 % [facility] WBC Auto (Bld) [facility] (40489) automated blood basophil count (count/volume) on 2018-02-21 Basophils Auto 0.0 10*3/uL (no code) 0 - 0.3 10*3/uL Via [facility]isti #/vol (d) [facility] ([id number]) Vital Signs The data below is from unstructured sources Vital Response Date/Time Temperature (Fahrenheit) 97.9 degree s F (97.6 - 99.5) 02/21/2018 2:46pm Temperature (Calculated Celsius) 36. 95525 degrees C (36.4 - 37.5) 02/21/2018 2:46pm Temperature Source Tympanic 02/21/2018 2:46pm Pulse Rate (Adolescent 12-19yrs) 77 bpm (56 - 106) 02/21/2018 2:46pm Respiratory Rate (Adolescent 12-19yrs) 16 bpm (15 - 20) 02/21/2018 2:46pm Blood Pressure / Blood Pressure Systolic (Adolescent 12-19yrs) 117 mm Hg (115 - 120) 02/21/2018 2:46pm Pain Numeric Pain Scale 0-No Pain 02/21/2018 2:46pm Height (Feet) 5 feet 2:46pm Height (Inches) 4.00 inches 02/21/2018 2:46pm Height (Calculated Centimeters) 162. 559567 cm 02/21/2018 2:46pm Height Method Stated 2:46pm Weight (Pounds) 161 pounds 02/21/2018 2:46pm Weight (Calculated Kilograms) 73.028 372 kilograms 02/21/2018 2:46pm Calculated BMI 21.09 2:46pm Vital Response Date/Time Temperature (Fahrenheit) 98.5 degree s F (97.6 - 99.5) 08/14/2018 3:00am Temperature (Calculated Celsius) 36. 82743 degrees C (36.4 - 37.5) 08/14/2018 3:00am Temperature Source Temporal 08/14/2018 3:00am Pulse Rate (adult) 86 bpm (60 - 90) 08/14/2018 3:00am Respiratory Rate 18 bpm (12 - 24) 08/14/2018 3:00am Blood Pressure 115/78 mm Hg 08/14/2018 3:00am Blood Pressure Mean 90 mm Hg (65 - 110) 08/14/2018 3:00am Pain Pasero Opioid-induced Sedation Scale (POSS) Awake and alert 08/14/2018 2:29am Numeric Pain Scale 10-Worst Possible Pain 08/14/2018 2:29am Height (Feet) 5 feet 2:11am Height (Inches) 4.00 inches 08/14/2018 2:11am Height (Calculated Centimeters) 162. 408280 cm 08/14/2018 2:11am Weight (Pounds) 169 pounds 08/14/2018 2:11am Weight (Ounces) 2.0 oz 0 08/14/2018 2:11am Weight (Calculated Grams) 51020.81 gm 08/14/2018 2:11am Weight (Calculated Kilograms) 76.713 810 kilograms 08/14/2018 2:11am Calculated BMI 29.0 07/25 2:11am Weight Measurement Method Standing Scale 08/14/2018 2:11am Vital Response Date/Time Temperature (Fahrenheit) 97.6 degree s F (97.6 - 99.5) 08/27/2018 3:00am Temperature (Calculated Celsius) 36. 12794 degrees C (36.4 - 37.5) 08/27/2018 3:00am Temperature Source Temporal 08/27/2018 3:00am Pulse Rate (adult) 69 bpm (60 - 90) 08/27/2018 3:00am Respiratory Rate 18 bpm (12 - 24) 08/27/2018 3:00am Blood Pressure 105/59 mm Hg 08/27/2018 3:00am Blood Pressure Mean 74 mm Hg (65 - 110) 08/27/2018 3:00am Pain Pasero Opioid-induced Sedation Scale (POSS) Awake and alert 08/14/2018 2:29am Numeric Pain Scale 8 1:50am Height (Feet) 5 feet 06/2018 1:39am Height (Inches) 4.00 inches 08/27/2018 1:39am Height (Calculated Centimeters) 162. 584093 cm 08/27/2018 1:39am Weight (Pounds) 177 pounds 08/27/2018 1:39am Weight (Ounces) 0.0 oz 0 08/27/2018 1:39am Weight (Calculated Grams) 66207.85 gm 08/27/2018 1:39am Weight (Calculated Kilograms) 80.285 850 kilograms 08/27/2018 1:39am Calculated BMI 30.4 06/2018 1:39am Weight Measurement Method Standing Scale 08/27/2018 1:39am Vital Response Date/Time Temperature (Fahrenheit) 97.0 degree s F (97.6 - 99.5) 09/13/2018 5:22am Temperature (Calculated Celsius) 36. 77751 degrees C (36.4 - 37.5) 09/13/2018 4:27am Temperature Source Tympanic 09/13/2018 5:22am Pulse Rate (adult) 83 bpm (60 - 90) 09/13/2018 5:22am Respiratory Rate 18 bpm (12 - 24) 09/13/2018 5:22am Blood Pressure 121/77 mm Hg 09/13/2018 5:22am Blood Pressure Mean 92 mm Hg (65 - 110) 09/13/2018 4:27am Pain Pasero Opioid-induced Sedation Scale (POSS) Awake and alert 09/13/2018 4:47am Numeric Pain Scale 5-Moderate Pain 09/13/2018 5:22am Height (Feet) 5 feet 4:21am Height (Inches) 4.00 inches 09/13/2018 4:21am Height (Calculated Centimeters) 162. 330446 cm 09/13/2018 4:21am Weight (Pounds) 177 pounds 09/13/2018 4:21am Weight (Ounces) 0.0 oz 0 09/13/2018 4:21am Weight (Calculated Grams) 72472.85 gm 09/13/2018 4:21am Weight (Calculated Kilograms) 80.285 850 kilograms 09/13/2018 4:21am Calculated BMI 30.4 08/25 4:21am Weight Measurement Method Standing Scale 09/13/2018 4:21am Vital Response Date/Time Temperature (Fahrenheit) 98.9 degree s F (97.6 - 99.5) 09/17/2018 3:10pm Temperature (Calculated Celsius) 37. 18968 degrees C (36.4 - 37.5) 09/17/2018 3:10pm Temperature Source Temporal 09/17/2018 3:10pm Pulse Rate (adult) 77 bpm (60 - 90) 09/17/2018 3:10pm Respiratory Rate 16 bpm (12 - 24) 09/17/2018 3:10pm Blood Pressure 120/81 mm Hg 09/17/2018 3:10pm Blood Pressure Mean 94 mm Hg (65 - 110) 09/17/2018 3:10pm Pain Pasero Opioid-induced Sedation Scale (POSS) Awake and alert 09/13/2018 4:47am Numeric Pain Scale 0-No Pain 09/17/2018 2:25pm Height (Feet) 5 feet 4:21am Height (Inches) 4.00 inches 09/13/2018 4:21am Height (Calculated Centimeters) 162. 896055 cm 09/13/2018 4:21am Weight (Pounds) 177 pounds 09/13/2018 4:21am Weight (Ounces) 0.0 oz 0 09/13/2018 4:21am Weight (Calculated Grams) 16008.85 gm 09/13/2018 4:21am Weight (Calculated Kilograms) 80.285 850 kilograms 09/13/2018 4:21am Calculated BMI 30.4 08/25 4:21am Weight Measurement Method Standing Scale 09/13/2018 4:21am Vital Reading Result Col lection Date/Time Vital Reading Result Col lection Date/Time Interventions No Information Plan of Treatment Normalized Care Care Detail Care Activity Date Care Provider F acility Activity Bacteria LM Ql no information no information MD SATURNINO Newsome scension Via (Urine sed) [address] [place] [address] ([id number]) Bilirubin Ql (U) no information no information MD SATURNINO THOMAS [facility] [address] [place] [address] ([id number]) Casts LM Ql (Urine no information no information MD SATURNINO Jiménez [facility] Via sed) [address] [place] [address] ([id number]) Clarity (U) no information no information MD SATURNINO THOMAS Asce nsion Via [address] [place] [address] ([id number]) Color (U) no information no information MD SATURNINO THOMAS Asce nsion Via [address] [place] [address] ([id number]) Crystals LM Ql no information no information MD SATURNINO GALILEO A scension Via (Urine sed) [address] [place] [address] ([id number]) Glucose Auto test no information no information MD SATURNINO THOMAS [facility] strip Ql (U) [address] [place] [address] ([id number]) Ketones Auto test no information no information MD SATURNINO THOMAS [facility] strip Ql (U) [address] [place] [address] ([id number]) Leukocyte esterase no information no information MD SATURNINO Jiménez C[facility] Via Test strip Ql (U) [address] [place] [address] ([id number]) Mucus Ql (Urine sed) no information no information MD SATURNINO MA [facility] Via [address] [place] [address] ([id number]) Nitrite Ql (U) no information no information MD SATURNINO THOMAS A scension Via [address] [place] [address] ([id number]) 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 MD SATURNINO MA [facility] [address] [place] [address] ([id number]) Patient referral no information no information MD SATURNINO THOMAS [facility] [address] [place] [address] ([id number]) pH (U) no information no information MD SATURNINO THOMAS Asce nsion Via [address] [place] [address] ([id number]) Protein Ql (U) no information no information MD SATURNINO THOMAS A scension Via [address] [place] [address] ([id number]) RBC LM.HPF (Urine no information no information MD SATURNINO THOMAS [facility] Via sed) [#/Area] [address] [place] [address] ([id number]) RBC Ql (U) no information no information MD SATURNINO THOMAS Asce nsion Via [address] [place] [address] ([id number]) Specific gravity (U) no information no information MD SATURNINO MA [facility] Via [Rel density] [address] [place] [address] ([id number]) Urinalysis complete no information no information MD SATURNINO CLEMONS [facility] Via W Reflex Culture [address] [place] [address] panel - Urine ([id number]) Urobilinogen (U) no information no information MD SATURNINO THOMAS [facility] Via [Mass/Vol] [address] [place] [address] ([id number]) WBC LM.HPF (Urine no information no information MD SATURNINO THOMAS [facility] Via sed) [#/Area] [address] [place] [address] ([id number]) Goals Patient Goal Desired Goal no information no information Social History Normalized Code Original Code Date Value Tobacco smoking status Tobacco smoking status no information Never smoked tobacco NHIS NHIS (finding) no information no information 04-20-2019 Denies Use no information no information 04-20-2019 No no information no information 04-20-2019 Never a Smoker no information no information 04-20-2019 Cigarettes no information no information 04-20-2019 Y - PTL - early August 2018 Sex Assigned At Sex Assigned At no information F emale Functional Status No Information Mental Status Status Assessment Result Care Provider Facility Cognitive function Comprehension Ability MD SATURNINO THOMAS [address] [facility] ([id number]) Encounters Encounter Normalized Encounter Encounter Diagnosis Care Provi madi Organization Date Type 09-18-2018 Discharged Recurring no information SATURNINO THOMAS Work no organization name - 12-11-2018 04-20-2019 Emergency department no information (no phone) As [facility] - patient visit Hospital (no phone) 04-20-2019 04-20-2019 Emergency department no information JENY DORMAN (no [facility] - patient visit phone) [facility] 04-20-2019 (no phone) 02-21-2018 Emergency department no information ERROL GIRON no organization name - patient visit Work Phone: 02-21-2018 02-21-2018 Emergency department no information no name no organization name - patient visit 02-21-2018 09-21-2016 Emergency department no information no name no organization name patient visit 10-03-2018 Evaluation and no information no name no organ ization name - management of 10-05-2018 inpatient 10-03-2018 Evaluation and no information no name no organ ization name - management of 10-05-2018 inpatient 08-27-2018 Evaluation and no information SATURNINO THOMAS Work no organization name - management of Phone: 08-27-2018 inpatient SATURNINO THOMAS SATURNINO THOMAS 08-26-2018 Evaluation and no information no name no organ ization name - management of 08-26-2018 inpatient 09-21-2016 Patient encounter no information no name no or ganization name - 09-22-2016 09-20-2016 Patient encounter no information no name no or ganization name 09-12-2016 Patient encounter no information no name no or ganization name 2016 Patient encounter no information no name no or ganization name 04-12-2016 Patient encounter no information no name no or ganization name 01-10-2016 Patient encounter no information no name no or ganization name 05-08-2019 Patient encounter no information SATURNINO THOMAS MD (no [facility] procedure phone) [facility] (no phone) 05-05-2019 Patient encounter no information SATURNINO THOMAS MD (no [facility] procedure phone) [facility] (no phone) 04-20-2019 Patient encounter no information no name no or ganization name procedure 04-14-2019 Patient encounter no information SATURNINO THOMAS MD (no [facility] - procedure phone) (no phone) [facility] 04-14-2019 (no phone) [facility] (no phone) 04-07-2019 Patient encounter no information (no phone) Ascen josef Via [facility] (no phone) 04-07-2019 Patient encounter no information no name no or ganization name procedure 12-11-2018 Patient encounter no information no name no or ganization name procedure 10-03-2018 Patient encounter no information no name no or ganization name - procedure 10-05-2018 09-20-2018 Patient encounter no information no name no or ganization name - procedure 09-20-2018 09-20-2018 Patient encounter no information no name no or ganization name - procedure 09-20-2018 09-19-2018 Patient encounter no information no name no or ganization name - procedure 09-19-2018 09-19-2018 Patient encounter no information no name no or ganization name - procedure 09-19-2018 09-18-2018 Patient encounter no information no name no or ganization name - procedure 12-10-2018 09-18-2018 Patient encounter no information no name no or ganization name - procedure 12-09-2018 09-17-2018 Patient encounter no information SATURNINO Rivera k no organization name - procedure Phone: 09-17-2018 09-17-2018 Patient encounter no information no name no or ganization name - procedure 09-17-2018 09-13-2018 Patient encounter no information SATURNINO Rivrea k no organization name - procedure Phone: 09-13-2018 SATURNINO THOMAS 09-13-2018 Patient encounter no information no name no or ganization name - procedure 09-13-2018 09-11-2018 Patient encounter no information no name no or ganization name procedure 08-27-2018 Patient encounter no information no name no or ganization name procedure 08-26-2018 Patient encounter no information no name no or ganization name - procedure 08-26-2018 08-14-2018 Patient encounter no information SATURNINO Rivera k no organization name - procedure Phone: 08-14-2018 SATURNINO THOMAS SATURNINO THOMAS 08-13-2018 Patient encounter no information no name no or ganization name - procedure 08-13-2018 05-27-2018 Patient encounter no information no name no or ganization name procedure 05-27-2018 Patient encounter no information no name no or ganization name procedure 02-21-2018 Patient encounter no information no name no or ganization name procedure 09-21-2016 Patient encounter no information no name no or ganization name - procedure 09-22-2016 09-20-2016 Patient encounter no information no name no or ganization name procedure 09-12-2016 Patient encounter no information no name no or ganization name procedure 2016 Patient encounter no information no name no or ganization name procedure 04-12-2016 Patient encounter no information no name no or ganization name procedure 01-10-2016 Patient encounter no information no name no or ganization name procedure Patient encounter no information no name no organizat ion name procedure 09-11-2018 Registered Recurring no information [employer] Work no organization name [employer] Medical Equipment The data below is from unstructured sourcesNo Medical Equipment Information available Payers Normalized Payer Value Unknown [id number]) Unknown no information ([id number]) Department of Defense ( and others) [id number]) Department of Defense ( and others) [id number] ([id number]) Evaluation note Note Type Note Facility Evaluation No Assessments Information Available A scension note Via [facility] ([id number]) Discharge Instructions You were admitted to [facility] on 05/29/2013. You were discharged from [facility] on 05/30/2013. Should you have any questions prior to discharge, please contact a member of your healthcare team. If you have left the hospital and have any questions, please contact your primary care physician. Advance Directives Directive Response Recor ded Date/Time Advance Directives No 2:51pm Health Care Power of Mold Hoister No 09/21/16 7:00am Organ Donor No 09/21/16 7:00am Resuscitation Status Full Code 02/21/18 2:51pm Directive Response Recor ded Date/Time Advance Directives No 2:12am Health Care Power of Mold Hoister No 08/14/18 2:12am Organ Donor No 08/14/18 2:12am Resuscitation Status Full Code 08/14/18 2:12am Directive Response Recor ded Date/Time Advance Directives No 1:40am Health Care Power of Mold Hoister No 08/27/18 1:40am Organ Donor No 08/27/18 1:40am Resuscitation Status Full Code 08/27/18 1:40am Directive Response Recor ded Date/Time Advance Directives No 4:32am Health Care Power of Mold Hoister No 09/13/18 4:32am Organ Donor No 09/13/18 4:32am Resuscitation Status Full Code 09/13/18 4:32am Directive Response Recor ded Date/Time Advance Directives No 4:32am Health Care Power of Mold Hoister No 09/13/18 4:32am Organ Donor No 09/13/18 4:32am Directive Response Recor ded Date/Time Advance Directives No 9:00pm Health Care Power of Mold Hoister No 09/20/18 9:00pm Organ Donor No 09/20/18 9:00pm Advance Directive Response Recorded Date/Time Advance Directives No Arnulfo luna 2019 4:09pm Health Care Power of Mold Hoister No April 20, 2019 4:09pm Organ Donor No March 272019 4:09pm Resuscitation Status Full Code April 20, 2019 4:09pm Chief Complaint and Reason for Visit Chief Complaint -Female Reason for Visit Vaginal bleeding du ring Bacterial vaginosis Chief Complaint Neurological Problem s Reason for Visit [id number] Additional Source Comments This clinical document has been generated using [employer] software that has been certified by the Office of the National Coordinator for Health Information Technology (ONC 15.99.04.3023.Diam.[id number]) and the National Committee for Hardwood Floor Installation Helper (NCQA, as an eMeasure certified technology). FOR RECORDS PERTAINING TO PATIENTS WHO ARE OR HAVE BEEN ENROLLED IN A CHEMICAL D EPENDENCY/SUBSTANCE ABUSE PROGRAM, SOME INFORMATION MAY BE OMITTED. This clinica l summary was aggregated from multiple sources. Caution should be exercised in using it in the provision of clinical care. This summary normalizes information from multiple sources, and as a consequence, information in this document may ma terially change the coding, format and clinical context of patient data. In otis tion, data may be omitted in some cases. CLINICAL DECISIONS SHOULD BE BASED ON T HE PRIMARY CLINICAL RECORDS. [employer] provides no warranty or guara ntee of the accuracy or completeness of information in this document.The followi ng information is based on time limited clinical information
--- OUTSIDE RECORDS SUMMARY | 2019-08-25 23:35 | XMS REPORT | Continuity of Care Document ---
Author Organization Unknown Address Unknown Phone Unavailable Allergies There is no data. Medications There is no data. Problems There is no data. Procedures There is no data. Results There is no data. Encounters ACCT No. Visit Date/Time Discharge Status Pt. Type Provider Facility Loc./Unit Complaint [id number] 06/24/2013 11:52:58 06/24/2013 23:59: 59 CLS Outpatient Sarah Barnett
== END 2019-08-25 19:41 | disposition home or self-care (01) ==
LOC: EDUNIT# 19:13 → ER 19:14
DX: S06.0X1A Concussion with loss of consciousness of 30 minutes or less, initial encounter (principal); R40.2142 Coma scale, eyes open, spontaneous, at arrival to emergency department; R40.2252 Coma scale, best verbal response, oriented, at arrival to emergency department; R40.2362 Coma scale, best motor response, obeys commands, at arrival to emergency department; Z86.73 Personal history of transient ischemic attack (TIA), and cerebral infarction without residual deficits; Z88.8 Allergy status to other drugs, medicaments and biological substances; Z79.52 Long term (current) use of systemic steroids; Z87.891 Personal history of nicotine dependence; Z82.49 Family history of ischemic heart disease and other diseases of the circulatory system; W17.89XA Other fall from one level to another, initial encounter
CPT/HCPCS: 99284

== ENCOUNTER 2020-06-12 20:43 | Emergency (ER) | payer MEDICAID ==
[~2020-06-12] VITALS: Ht 165.1 cm; Wt 90.7 kg
[~2020-06-12 20:43] MED LIST changes: -CLIN300C11 PO; +CLIN300C12 PO; +ONDA4TAB11 PO; +SERT-412 PO; -SERT25TA5 PO
[2020-06-12 21:31] LABS: BILIRUBIN,URINE NEGATIVE (NEGATIVE); CLARITY,URINE CLEAR; COLOR,URINE YELLOW; GLUCOSE, URINE (UA) NEGATIVE (NEGATIVE); KETONES,URINE NEGATIVE (NEGATIVE); LEUKOCYTE ESTERASE ,URINE 1+ (NEGATIVE); NITRITE,URINE NEGATIVE (NEGATIVE); PH,URINE 6.5 (5-9); PROTEIN,URINE NEGATIVE (NEGATIVE)
[2020-06-12 21:46] LABS: BACTERIA,URINE TRACE /HPF; SQUAMOUS EPITHELIAL CELL,UR 25-50 /HPF
--- NOTE | 2020-06-12 21:52 | ED GU-Female ---
General Chief Complaint: Abdominal/GI Problems Stated Complaint: PREG - UNSURE HOW FAR ALONG / BACK PAIN Nursing Triage Note: PT ARRIVED BY PRIVATE VEHICLE WITH CHIEF COMPLAINT OF ABDOMINAL PAIN. PT STATED THAT YESTERDAY AT [facility] SHE HER TEST WAS POSITIVE. THEY SAID IF HER PAIN GOT WORSE TO GO TO THE EMERGENCY ROOM. PT WAS SURPRISED BECAUSE AROUND THE SHE TESTED NEGATIVE WHEN SHE WAS LATE, SPOTTED THEN HAD BROWN COLORED BLOOOD. SHE THOUGHT IT WAS AN OVARIAN CYST. PT HAS HISTORY OF PCOS. PT LAST USED MARIJUANA 2-3 DAYS AGO. PT DENIES ALLERGIES. PT WAS ALERT, ORIENTED X 4 AND AMBULATORY ON ARRIVAL. REPORT GIVEN TO PROVIDER. URINE WAS COLLECTED. Nursing Sepsis Screen: No Definite Risk Source: patient History of Present Illness Date Seen by Provider: Jun 12, 2020 Time Seen by Provider: 21:10 Initial Comments PT ARRIVES VIA POV STATES SHE HAD A LIGHT PERIOD 06/03/20--LASTED A COUPLE OF DAYS AND WAS MOSTLY S POTTING WITH BROWN BLOOD. PT DID A HOME TEST AT THAT TIME AND WAS NEGATIVE. PT HAS NOT HAD ANY BLEEDING SINCE THEN NO VAGINAL DISCHARGE PT WENT TO [facility] FOR UTI SYMPTOMS--MUCH PAIN AND BURNING ON URINATION, URGENCY AND FREQUENCY AND LOWER ABDOMINAL PAIN AND HAD A POSITIVE TEST AND WAS DX WITH UTI AND PLACED ON KEFLEX 500 MG BID PT STATES TODAY SHE IS HAVING INCREASED PAIN IN LEFT FLANK AREA, AND WAS TOLD TO COME TO ER IF HER SYMPTOMS WORSENED HAS NOT TAKEN ANYTHING FOR PAIN NO FEVER/SWEATS/CHILLS NO NAUSEA/VOMITING PT HAS CHRONIC UTI'S, BUT CANNOT STATE WHEN HER LAST ONE WAS PT HAS PCOS AND IS ON METFORMIN, AND HAS IRREGULAR PERIODS, NOT ON CONTROL. PT IS AB 8 PCP: SEES DR. THOMAS WELL A [employer] WITH [employer] IN [place]--HAS NOT BEEN TO EITHER ONE RECENTLY Allergies and Home Medications Allergies Coded Allergies: diphenhydramine (Verified Adverse Reaction, Unknown, hyperactivity, 09/20/18) Home Medications Acyclovir 400 Mg Tablet, 400 MG PO 5XD . Prescribed by: JENY AGUILAR on 04/20/19 0639 Ibuprofen 600 Mg Tablet, 600 MG PO Q6HR Prescribed by: HIREN THOMAS on 10/05/18 0692 Ondansetron 4 Mg Tab.rapdis, 4 MG PO Q6H PRN for NAUSEA/VOMITING Prescribed by: VANESSA MCHUGH on 08/25/19 193 Prednisone 20 Mg Tab, 20 MG PO DAILY Take 3 tabs(60mg)daily, decrease by 1/2 tab(10mg)daily.. Prescribed by: JENY AGUILAR on 04/20/19 361 Patient Home Medication List Home Medication List Reviewed: Yes Review of Systems Review of Systems Constitutional: no symptoms reported; No chills, No diaphoresis, No fever Respiratory: no symptoms reported Cardiovascular: no symptoms reported Gastrointestinal: see HPI, abdominal pain; No nausea, No vomiting Genitourinary: see HPI, burning, dysuria, frequency, flank pain; denies hematuria; pain Musculoskeletal: see HPI, back pain Skin: no symptoms reported Psychiatric/Neurological: No Symptoms Reported Endocrine: No Symptoms Reported Hematologic/Lymphatic: No Symptoms Reported Past [id number] Hx Past Med/Social Hx: Reviewed and Corrections made Patient Social History Alcohol Use: Denies Use Drug of Choice: MARIJUANA Smoking Status: Current Everyday Smoker Type Used: Cigarettes Recent Infectious Disease Expo: No Recent Hopitalizations: Yes (PTL - early August 2018) Immunizations Up To Date Tetanus Booster (TDap): Unknown PED Vaccines UTD: No Seasonal Allergies Seasonal Allergies: Yes (mild hay fever, pet dandruff) Past Medical History Surgeries: Yes (hernia repair, D&C x1) Abdominal, Adenoidectomy, Tonsillectomy Respiratory: Yes Pneumonia Cardiac: No Neurological: No Hx : 10 Hx Para: 1 (DELIVERED IN 2019) Hx Total # of Abortions (Sp): 8 Reproductive Disorders: Yes Female Reproductive Disorders: Menstrual Problems, Polycystic Ovarian Dis Sexually Transmitted Disease: No HIV/AIDS: No Genitourinary: Yes UTI-Chronic Gastrointestinal: No Musculoskeletal: Yes Fibromyalgia Endocrine: No (PCOS ON METFORMIN) HEENT: No Cancer: No Psychosocial: Yes (bpd) ADD/ADHD, Anxiety, PTSD, Bipolar, Depression Integumentary: No Blood Disorders: No Adverse Reaction/Blood Tranf: No Family Medical History Headache disorder 19 FATHER Hypertension 19 FATHER Hypoglycemia 19 MOTHER Myocardial infarction GRANDMOTHER Physical Exam Vital Signs Vital Signs - First Documented 06/12/20 21:10 Temp 36.7 Pulse 103 Resp 16 B/P (MAP) 124/89 (101) Pulse Ox 98 O2 Delivery Room Air Capillary Refill : Less Than 3 Seconds Height, Weight, BMI Height: 5'4.00" Weight: 183lbs. 0.0oz. 83.457502de; 33.00 BMI Method:Stated General Appearance: WD/WN, no apparent distress, other (SMILING, WALKS UPRIGHT AND MOVES WITHOUT DIFFICULTY. LAYING OUTSTRETCHED WITH ARMS OVER HEAD AND LEGS CROSSED AT ANKLES..GOES FROM LAYING COMPLETELY OUTSTRETCHED, SITTING UP VERY QUICKLY TO PERUVIAN-STYLE WITHOUT ANY DIFFICULTY WHATSOEVER. DOES NOT APPEAR TO BE IN ANY DISCOMFORT OR DISTRESS WHATSOEVER) Cardiovascular: regular rate, rhythm, no murmur Respiratory: normal breath sounds, no respiratory distress, no accessory muscle use Gastrointestinal: normal bowel sounds, soft, no organomegaly, tenderness (VERY MILD SUPRAPUBIC AND LEFT FLANK TENDERNESS) Back: CVA tenderness (L) Extremities: normal inspection, no pedal edema Neurologic/Psychiatric: no motor/sensory deficits, alert, normal mood/affect, oriented x 3 Skin: normal color, warm/dry, tattoos/piercings Progress/Results/Core Measures Suspected Sepsis Recent Fever Within 48 Hours: No Infection Criteria Present: None New/Unexplained Altered Menta: No Sepsis Screen: No Definite Risk SIRS Temperature: Pulse: 103 Respiratory Rate: 16 Laboratory Tests 06/12/20 22:11: White Blood Count 8.3 Blood Pressure 124 /89 Mean: 101 Laboratory Tests 06/12/20 22:11: Creatinine 0.74, Platelet Count 292 Results/Orders Lab Results Laboratory Tests Test 06/12/20 21:14 06/12/20 21:25 06/12/20 22:11 Range/Units Urine Color YELLOW Urine Clarity CLEAR Urine pH 6.5 5-9 Urine Specific [place] 1.020 1.016-1.022 Urine Protein NEGATIVE NEGATIVE Urine Glucose (UA) NEGATIVE NEGATIVE Urine Ketones NEGATIVE NEGATIVE Urine Nitrite NEGATIVE NEGATIVE Urine Bilirubin NEGATIVE NEGATIVE Urine Urobilinogen 0.2 < = 1.0 MG/DL Urine Leukocyte Esterase 1+ H NEGATIVE Urine RBC (Auto) NEGATIVE NEGATIVE Urine RBC NONE /HPF Urine WBC 2-5 /HPF Urine Squamous Epithelial Cells 25-50 H /HPF Urine Crystals NONE /LPF Urine Bacteria TRACE /HPF Urine Casts NONE /LPF Urine Mucus NEGATIVE /LPF Urine Culture Indicated NO Urine Test POSITIVE NEGATIVE Urine Opiates Screen NEGATIVE NEGATIVE Urine Oxycodone Screen NEGATIVE NEGATIVE Urine Methadone Screen NEGATIVE NEGATIVE Urine Propoxyphene Screen NEGATIVE NEGATIVE Urine Barbiturates Screen NEGATIVE NEGATIVE Ur Tricyclic Antidepressants Screen NEGATIVE NEGATIVE Urine Phencyclidine Screen NEGATIVE NEGATIVE Urine Amphetamines Screen NEGATIVE NEGATIVE Urine Methamphetamines Screen NEGATIVE NEGATIVE Urine Benzodiazepines Screen NEGATIVE NEGATIVE Urine Cocaine Screen NEGATIVE NEGATIVE Urine Cannabinoids Screen POSITIVE H NEGATIVE White Blood Count 8.3 4.3-11.0 10^3/uL Red Blood Count 4.41 3.80-5.11 10^6/uL Hemoglobin 13.4 11.5-16.0 g/dL Hematocrit 41 35-52 % Mean Corpuscular Volume 93 80-99 fL Mean Corpuscular Hemoglobin 30 25-34 pg Mean Corpuscular Hemoglobin Concent 33 32-36 g/dL Red Cell Distribution Width 13.1 10.0-14.5 % Platelet Count 292 130-400 10^3/uL Mean Platelet Volume 9.7 9.0-12.2 fL Immature Granulocyte % (Auto) 0 % Neutrophils (%) (Auto) 55 42-75 % Lymphocytes (%) (Auto) 29 12-44 % Monocytes (%) (Auto) 10 0-12 % Eosinophils (%) (Auto) 6 0-10 % Basophils (%) (Auto) 0 0-10 % Neutrophils # (Auto) 4.5 1.8-7.8 10^3/uL Lymphocytes # (Auto) 2.4 1.0-4.0 10^3/uL Monocytes # (Auto) 0.8 0.0-1.0 10^3/uL Eosinophils # (Auto) 0.5 H 0.0-0.3 10^3/uL Basophils # (Auto) 0.0 0.0-0.1 10^3/uL Immature Granulocyte # (Auto) 0.0 0.0-0.1 10^3/uL Sodium Level 140 135-145 MMOL/L Potassium Level 3.4 L 3.6-5.0 MMOL/L Chloride Level 105 98-107 MMOL/L Carbon Dioxide Level 25 21-32 MMOL/L Anion Gap 10 5-14 MMOL/L Blood Urea Nitrogen 13 7-18 MG/DL Creatinine 0.74 0.60-1.30 MG/DL Estimat Glomerular Filtration Rate > 60 BUN/Creatinine Ratio 18 Glucose Level 75 70-105 MG/DL Calcium Level 9.5 8.5-10.1 MG/DL Human Chorionic Gonadotropin, Quant 144 H <5 MIU/ML My Orders Orders - KINJAL,ASHVIN K DO Urine Bedside (06/12/20 21:10) Heart Tones (06/12/20 21:10) Ua Culture If Indicated (06/12/20 21:10) Hcg,Qualitative Urine (06/12/20 21:39) Drug Screen Stat (Urine) (06/12/20 21:46) Basic Metabolic Panel (06/12/20 21:55) Cbc With Automated Diff (06/12/20 21:55) Hcg,Quantitative (06/12/20 21:55) Abo Rh Type (06/12/20 21:55) Urine Culture (06/12/20 22:16) Vital Signs/I&O 06/12/20 21:10 Temp 36.7 Pulse 103 Resp 16 B/P (MAP) 124/89 (101) Pulse Ox 98 O2 Delivery Room Air Capillary Refill : Less Than 3 Seconds Blood Pressure Mean: 101 Progress Note : Progress Note NO COMPLAINTS OF PAIN OR ANY OTHER COMPLAINTS FOR ENTIRE ER STAY Departure Impression Primary Impression: UTI (urinary tract infection) in in first trimester Additional Impression: Marijuana use Disposition: 01 HOME, SELF-CARE Condition: Stable Departure-Patient Inst. Referrals: HIREN THOMAS MD (PCP/Family) Primary Care Physician Patient Instructions: Urinary Tract Infections in Add. Discharge Instructions: LOTS OF CLEAR LIQUIDS TYLENOL 1 GRAM 4 TIMES A DAY NEEDED FOR PAIN CONTINUE YOUR ANTIBIOTIC PRESCRIBED FOLLOW UP WITH DR. THOMAS NEXT WEEK FOR FURTHER CARE--CALL ON SUNDAY MORNING TO SCHEDULE APPOINTMENT. All discharge instructions reviewed with patient and/or family. Voiced understanding. ASHVIN LAYTON DO Jun 12, 2020 21:52
[2020-06-12 22:07] LABS: AMPHETAMINE SCREEN, URINE NEGATIVE (NEGATIVE); BARBITURATE SCREEN URINE NEGATIVE (NEGATIVE); BENZODIAZEPINES SCREEN URINE NEGATIVE (NEGATIVE); CANNABINOID SCREEN, URINE POSITIVE (NEGATIVE); COCAINE SCREEN URINE NEGATIVE (NEGATIVE); METHADONE STAT NEGATIVE (NEGATIVE); METHAMPHETAMINE SCREEN URINE S NEGATIVE (NEGATIVE); OPIATE SCREEN URINE NEGATIVE (NEGATIVE); OXYCODONE STAT NEGATIVE (NEGATIVE); PROPOXYPHENE STAT NEGATIVE (NEGATIVE); TRICYCLIC ANTIDEPRESSANTS SCRE NEGATIVE (NEGATIVE)
[2020-06-12 22:22] LABS: BASOPHILS % (AUTO) 0 % (0-10); EOSINOPHILS # (AUTO) 0.5 10^3/uL (0.0-0.3); EOSINOPHILS % (AUTO) 6 % (0-10); HEMATOCRIT 41 % (35-52); HEMOGLOBIN 13.4 g/dL (11.5-16.0); LYMPHOCYTES # (AUTO) 2.4 10^3/uL (1.0-4.0); LYMPHOCYTES % (AUTO) 29 % (12-44); MEAN CORPUSCULAR HEMOGLOBIN 30 pg (25-34); MEAN CORPUSCULAR HGB CONC 33 g/dL (32-36); MEAN CORPUSCULAR VOLUME 93 fL (80-99); MEAN PLATELET VOLUME 9.7 fL (9.0-12.2); MONOCYTES # (AUTO) 0.8 10^3/uL (0.0-1.0); MONOCYTES % (AUTO) 10 % (0-12); NEUTROPHILS # (AUTO) 4.5 10^3/uL (1.8-7.8); NEUTROPHILS % (AUTO) 55 % (42-75); PLATELET COUNT 292 10^3/uL (130-400); WHITE BLOOD COUNT 8.3 10^3/uL (4.3-11.0)
[2020-06-12 22:36] LABS: BUN/CREATININE RATIO 18; CALCIUM 9.5 MG/DL (8.5-10.1); CARBON DIOXIDE 25 MMOL/L (21-32); CHLORIDE 105 MMOL/L (98-107); CREATININE SERUM 0.74 MG/DL (0.60-1.30); GFR ESTIMATED > 60; GLUCOSE 75 MG/DL (70-105); POTASSIUM 3.4 MMOL/L (3.6-5.0); SODIUM 140 MMOL/L (135-145)
[2020-06-12 22:50] VITALS: BP 105/72
== END 2020-06-12 22:50 | disposition home or self-care (01) ==
LOC: EDUNIT# 20:43 → ER 20:46
DX: O23.41 Unspecified infection of urinary tract in pregnancy, first trimester (principal); O99.321 Drug use complicating pregnancy, first trimester; F12.90 Cannabis use, unspecified, uncomplicated; O99.281 Endocrine, nutritional and metabolic diseases complicating pregnancy, first trimester; E28.2 Polycystic ovarian syndrome; Z88.8 Allergy status to other drugs, medicaments and biological substances; O99.331 Smoking (tobacco) complicating pregnancy, first trimester; F17.210 Nicotine dependence, cigarettes, uncomplicated; Z79.52 Long term (current) use of systemic steroids; Z79.84 Long term (current) use of oral hypoglycemic drugs; Z3A.01 Less than 8 weeks gestation of pregnancy
CPT/HCPCS: 36415; 80048; 80306; 81000; 84702; 84703; 85025; 86900; 86901; 87088; 99282

== ENCOUNTER → 2020-06-14 | Outpatient (CLI) | payer MEDICAID | LOC: LAB 09:39 | PROVIDERS: ATTEND Family Medicine | DX: O26.899 Other specified pregnancy related conditions, unspecified trimester (principal); M54.9 Dorsalgia, unspecified; Z3A.00 Weeks of gestation of pregnancy not specified | CPT/HCPCS: 36415; 84702 ==